=== PATIENT | female | born 1940 | race Caucasian/White ===

== ENCOUNTER 2017-03-15 08:01 | Day surgery (SDC) | payer BC ==
[2017-03-15] MEDS ORDERED: PROPOFOL 10 MG/ML VIAL IV ONE (13:32)
[2017-03-15] MEDS ORDERED: LIDOCAINE 2% MDV (20MG/ML) 20ML VIAL IV ONE (13:32)
[2017-03-15] MEDS ORDERED: FENTANYL PF 100MCG/2ML VIAL IV ONE (13:32)
--- NOTE | 2017-03-19 15:40 | Operative Note ---
DATE OF SURGERY: 03/15/2017 REQUESTING PHYSICIAN: CabralesURGEON: Janine Barreto MD POSTOPERATIVE DIAGNOSES: 1. Diffuse gastritis. 2. Postsurgical changes consistent with antrectomy. 3. Left-sided colonic diverticulosis. OPERATION: 1. ESOPHAGOGASTRODUODENOSCOPY. 2. COLONOSCOPY and exam. REASON FOR PROCEDURE: This is a 77-year-old female with a history of abdominal pain and colon polyps presenting for both esophagogastroduodenoscopy and colonoscopy. SEDATION: Sedation as per anesthesia. Pulse oximetry was monitored throughout the duration of the procedure to maintain O2 saturation of 90% or greater. Supplemental oxygen was administered via nasal cannula. Cardiac and vital signs were monitored throughout the duration of the procedure and they were stable. PROCEDURE: Description of the procedures of esophagogastroduodenoscopy and colonoscopy, risks and alternatives to the procedures including the risk of bleeding and perforation among others were explained to the patient who voiced understanding and decided to proceed. Physical examination was performed and the patient was found stable for sedation. The patient was then placed in the left lateral position and sedation was initiated. A plastic bite block was inserted into the oral cavity. A lubricated Olympus GIF-180 gastroscope was then placed through the oral cavity and advanced through the proximal esophagus without difficulty. The esophageal mucosa was carefully examined upon insertion of the gastroscope. The proximal, mid and distal esophageal mucosa appeared normal. The gastroscope was then advanced to the stomach and there were postsurgical changes noted consistent with antrectomy, but no ulcers, lesions, or any mass lesions noted. That gastric pouch appeared diffusely erythematous. The efferent limb appeared normal. The gastroscope was then advanced to the stomach and retroflexion was performed. There were no other lesions noted. The gastroscope was then straightened and withdrawn, very carefully re-examining the gastric and esophageal mucosa and no other lesions were noted. Multiple gastric biopsies were obtained. The patient remained with stable vital signs and was repositioned for colonoscopy. Digital rectal exam was performed and showed small external hemorrhoids with no palpable rectal masses. A lubricated Olympus PCF-180AL colonoscope was then inserted into the rectum under direct visualization and was advanced to the cecum without difficulty. The ileocecal valve and appendiceal orifice were identified and photographed. The colonic mucosa was carefully examined upon insertion of the colonoscope. There were scattered diverticula noted in the sigmoid and descending colon. No other lesions were noted. The colonoscope was then withdrawn while carefully examining the colonic mucosal surfaces. No other lesions were noted. In the rectum on retroflexion, grade 1 internal hemorrhoids were noted. The colonoscope was then withdrawn and the procedure was terminated. The patient tolerated the procedure well without any complications. The patient remained with stable vital signs and was sent to the recovery room. PLAN AND RECOMMENDATIONS: 1. She should be on a high-fiber diet. 2. She is to have repeat colonoscopy only as needed. Thank you for allowing me to participate in the care of this patient. Janine Barreto MD CC: DO GEOFF Reeves
== END 2017-03-15 10:10 | disposition home or self-care (01) ==
LOC: HOP 08:01
PROVIDERS: ATTEND Internal Medicine Gastroenterology
DX: Z86.010 Personal history of colon polyps (principal); K29.50 Unspecified chronic gastritis without bleeding; K57.30 Diverticulosis of large intestine without perforation or abscess without bleeding; I10 Essential (primary) hypertension; E03.9 Hypothyroidism, unspecified; E78.00 Pure hypercholesterolemia, unspecified
CPT/HCPCS: 00810; 43239; G0121

== ENCOUNTER 2017-11-29 17:27 | Observation (INO) | payer BC ==
[2017-11-29] MEDS ORDERED: METHYLPREDNISOLONE PF 125MG/VIAL IVP ONE (18:00)
[2017-11-29] MEDS ORDERED: ALBUTEROL SULFATE (0.083%) 2.5 MG/3 ML NEB INH ONE (18:00)
[2017-11-29] MEDS ORDERED: IPRATROPIUM/ALBUTEROL (0.5MG/3MG) NEB INH ONE (18:04)
[2017-11-29 18:17] LABS: BASO % 0.5 % (0-6); EOS % 0.9 % (0-6); GRAN % 77.6 % (47-80); HEMATOCRIT 43.6 % (35.0-47.0); HEMOGLOBIN 14.5 gm/dl (11.6-16.0); LYMPH % 11.8 % (16-45); MEAN CELL VOLUME 90.6 fl (81-97); MEAN CORPUSCULAR HEMOGLOBIN 30.1 pg (27-33); MEAN CORPUSCULAR HGB CONC 33.3 g/dl (32-36); MEAN PLATELET VOLUME 9.6 fl (7.4-10.4); MONO % 9.2 % (0-9); PLATELET COUNT 214 K/uL (130-400); RED BLOOD COUNT 4.81 M/uL (3.80-5.40); RED CELL DISTRIBUTION WIDTH 14.4 % (11.5-14.5); WHITE BLOOD COUNT W/O DIFF 8.2 K/uL (4.2-12.2)
--- NOTE | 2017-11-29 18:18 | Emergency Department Record ---
History of Present Illness - General Chief Complaint: Difficulty Breathing Stated Complaint: CHEST PAIN Time Seen by Provider: 11/29/17 17:49 Source: Patient, EMS Mode of Arrival: EMS Limitations: No limitations - History of Present Illness Initial Comments: pt has a cough that started a month ago that is productive green. she has become increasingly sob MD Complaint: Cough, Shortness of breath Onset/Timin -: Days(s) Consistency: Getting worse Improves With: Nothing Worsens With: Exertion Known History Of: COPD Context: Recent URI Associated Symptoms: Cough Treatments Prior to Arrival: None - Related Data Home Oxygen Therapy: No Allergies Allergy/AdvReac Type Severity Reaction Status Date / Time codeine Allergy Unknown NAUSEA AND Verified 11/29/17 17:51 VOMITING Travel Screening - Travel/Exposure Within Last 30 Days Have you traveled within the last 30 days?: No - Travel/Exposure Within Last Year Have you traveled outside the [place] in the last year?: No - Additonal Travel Details Have you been exposed to anyone with a communicable illness?: No Review of Systems Reviewed: No additional complaints except as noted below Constitutional: Reports: As per HPI. Denies: Chills, Fever, Malaise, Night sweats, Weakness, Weight change Eyes: Reports: As per HPI. Denies: Eye discharge, Eye pain, Photophobia, Vision change ENT: Reports: As per HPI. Denies: Congestion, Dental pain, Ear pain, Epistaxis , Hearing loss, Throat pain Respiratory: Reports: As per HPI, Cough, Dyspnea, Wheezes. Denies: Hemoptysis, Stridor Cardiovascular: Reports: As per HPI. Denies: Arrhythmia, Chest pain, Dyspnea on exertion, Edema, Murmurs, Orthopnea, Palpitations, Paroxysmal nocturnal dyspnea, Rheumatic Fever, Syncope Endocrine: Reports: As per HPI. Denies: Fatigue, Heat or cold intolerance, Polydipsia, Polyuria Gastrointestinal: Reports: As per HPI. Denies: Abdominal pain, Constipation, Diarrhea, Hematemesis, Hematochezia, Melena, Nausea, Vomiting Genitourinary: Reports: As per HPI. Denies: Abnormal menses, Discharge, Dyspareunia, Dysuria, Frequency, Hematuria, Incontinence, Retention, Urgency Musculoskeletal: Reports: As per HPI. Denies: Arthralgia, Back pain, Gout, Joint swelling, Myalgia, Neck pain Skin: Reports: As per HPI. Denies: Bruising, Change in color, Change in hair/ nails, Lesions, Pruritus, Rash Neurological: Reports: As per HPI. Denies: Abnormal gait, Confusion, Headache, Numbness, Paresthesias, Seizure, Tingling, Tremors, Vertigo, Weakness Psychiatric: Reports: As per HPI. Denies: Anxiety, Auditory hallucinations, Depression, Homicidal thoughts, Suicidal thoughts, Visual hallucinations Hematological/Lymphatic: Reports: As per HPI. Denies: Anemia, Blood Clots, Easy bleeding, Easy bruising, Swollen glands Past Medical History - SOCIAL HISTORY Smoking Status: Never smoker Alcohol Use: None Drug Use: None - RESPIRATORY Hx Respiratory Disorders: Yes Hx Asthma: Yes (bronchial) Hx Bronchitis: Yes Hx COPD: Yes - CARDIOVASCULAR Hx Cardio Disorders: Yes Hx Edema: Yes Hx Hypertension: Yes Hx Coronary Artery Disease: Yes Comment:: pt has carotid artery stenosis-no problems, mows lawn, chores w/o diff - NEURO Hx Neuro Disorders: No - GI Hx GI Disorders: Yes Hx Reflux: Yes Hx Hiatal Hernia: Yes Hx of Polyps: Yes - Hx Genitourinary Disorders: Yes Hx UTI: Yes - ENDOCRINE Hx Endocrine Disorders: Yes Hx Diabetes: No Hx Thyroid Disease: Yes - MUSCULOSKELETAL Hx Musculoskeletal Disorders: Yes Hx Arthritis: Yes - PSYCH Hx Psych Problems: Yes Hx Anxiety: Yes Hx Depression: Yes 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 - HEMATOLOGY/ONCOLOGY Hx Hematology/Oncology Disorders: Yes Hx Cancer: Yes (Pancreatic (?)) Hx Chemotherapy: No Hx Radiation Therapy: No Comment:: Pt states, "spot on pancreas, 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" Family Medical History Any Significant Family History?: Yes Hx Cancer: Father, Mother *Cancer Comment: Father-colon ca, Mom-ovarian, sister-breast Physical Exam - General General Appearance: Alert, Oriented x3, Cooperative, Mild distress - Head Head exam: Normal inspection - Eye Eye exam: Normal appearance, PERRL, EOMI Pupils: Normal accommodation - ENT ENT exam: Normal exam, Mucous membranes moist, Normal external ear exam, Normal orophraynx Ear exam: Normal external inspection. negative: External canal tenderness Nasal Exam: Normal inspection. negative: Discharge, Sinus tenderness Mouth exam: Normal external inspection, Tongue normal Teeth exam: Normal inspection. negative: Dental caries Throat exam: Normal inspection. negative: Tonsillar erythema, Tonsillar exudate - Neck Neck exam: Normal inspection, Full ROM. negative: Tenderness - Respiratory Respiratory exam: Rales, Respiratory distress, Wheezes - Cardiovascular Cardiovascular Exam: Regular rate, Normal rhythm, Normal heart sounds - GI/Abdominal GI/Abdominal exam: Soft, Normal bowel sounds. negative: Tenderness - Rectal Rectal exam: Deferred - exam: Deferred - Extremities Extremities exam: Normal inspection, Full ROM, Normal capillary refill. negative: Tenderness - Back Back exam: Reports: Normal inspection, Full ROM. Denies: Muscle spasm, Rash noted, Tenderness - Neurological Neurological exam: Alert, CN II-XII intact, Normal gait, Oriented X3 - Psychiatric Psychiatric exam: Normal affect, Normal mood - Skin Skin exam: Dry, Intact, Normal color, Warm Course Vital Signs 11/29/17 17:39 Temperature 98.6 F Pulse Rate 101 H Respiratory 20 Rate Blood Pressure 151/95 Pulse Ox 96 Medical Decision Making - Lab Data Result diagrams: 11/29/17 18:10 11/29/17 18:10 Disposition Disposition: Admit Clinical Impression: Bronchitis Pneumonia Qualifiers: Pneumonia type: due to unspecified organism Laterality: bilateral Lung location : lower lobe of lung Qualified Code(s): J18.9 - Pneumonia, unspecified organism Disposition: Still a Patient at [facility] Decision to Admit: Admit from ER Decision to Admit Date: 11/29/17 Decision to Admit Time: 19:40 Forms: Patient Portal Access Quality - Quality Measures Quality Measures: N/A - Blood Pressure Screening Does Patient Have Any of the Following: Active Dx of HTN Blood Pressure Classification: Hypertensive Reading Systolic Measurement: 151 Diastolic Measurement: 95 Screening for High Blood Pressure: Patient Exclusion, Hx of HTN [[id number]]
[2017-11-29 18:27] LABS: INFLUENZA A NEGATIVE (NEGATIVE); INFLUENZA B NEGATIVE (NEGATIVE)
[2017-11-29 18:35] LABS: BLOOD UREA NITROGEN 14 mg/dL (8-23); CREATININE 0.6 mg/dL (0.5-0.9); EST GLOMERULAR FILTRATION RATE > 60 mL/min; GLUCOSE,RANDOM 129 mg/dL (74-109)
[2017-11-29] MEDS ORDERED: CEFTRIAXONE SODIUM 1 GM in 0.9 % SODIUM CHLORIDE 100ML 100 ML IVPB ONE (19:35)
[2017-11-29] MEDS ORDERED: ACETAMINOPHEN 500 MG TABLET PO PRN (20:52)
[2017-11-29] MEDS ORDERED: CEFTRIAXONE SODIUM 1 GM in 0.9 % SODIUM CHLORIDE 100ML 100 ML IVPB SCH (20:52)
[2017-11-29] MEDS ORDERED: IPRATROPIUM/ALBUTEROL (0.5MG/3MG) NEB INH PRN (20:52)
[2017-11-29] MEDS ORDERED: AZITHROMYCIN 500 MG in 0.9 % SODIUM CHLORIDE 250ML 250 ML IVPB SCH (20:52)
--- NOTE | 2017-11-29 21:10 | History & Physical ---
History of Present Illness - Date of Service Date of Service for History & Physical: 11/30/17 - History of Present Illness Admitting Diagnosis: pneumonia, bronchitis History of Present Illness: Pt. is a 77 year-old female who presented to the ED on 11/29/17 with complaint of cough and productive green sputum that she has been experiencing for one month with worsening shortness of breath. Her history includes: COPD, asthma, hypertension, coronary artery disease, gerd, hiatal hernia, UTIs, hypothyroidism, arthritis, anxiety and depression, whipple procedure, and pancreatic cancer (removed during whipple). In the ED, her vital signs were: BP 151/95, HR 101, RR 20, 96% on 2L nc, and T 98.6F. Her CMP was unremarkable, CBC with differential unremarkable. Chest xray demonstrated stable chronic interstitial changes in bilateral lung reid, area of confluence within right middle lobe. Azithromycin 500mg IV and rocephin 1gm IV administered. Solu-medrol 125mg IVP administered. Based on history of COPD and pneumonia, she was admitted for inpatient observation for IV antibiotics and respiratory treatments. 11/30/17 1100: Pt. is resting comfortably in bed. She reports improved ease of breathing. She states that she is still coughing up thick brown sputum, but frequency is decreasing. Plan to change IV antibiotics to orals, start cefdinir 300mg bid and azithromycin 250mg daily, total of 5 days antibiotic therapy. Mucinex 1200mg bid ordered to help thin secretions. Plan to continue duo nebs and albuterol nebs. Plan for pt. to stay overnight tonight based on comorbidity of COPD with pneumonia and need for respiratory treatments and monitoring of labs and vital signs. Pt. lives independently at her home. Travel Screening - Travel/Exposure Within Last 30 Days Have you traveled within the last 30 days?: No - Travel/Exposure Within Last Year Have you traveled outside the [place] in the last year?: No - Additonal Travel Details Have you been exposed to anyone with a communicable illness?: No Review of Systems Constitutional: Reports: As per HPI. Denies: Chills, Fever, Malaise, Night sweats, Weakness, Weight change Eyes: Reports: As per HPI. Denies: Eye discharge, Eye pain, Photophobia, Vision change ENT: Reports: As per HPI. Denies: Congestion, Dental pain, Ear pain, Epistaxis , Hearing loss, Throat pain Respiratory: Reports: As per HPI, Cough, Dyspnea, Wheezes. Denies: Hemoptysis, Stridor Cardiovascular: Reports: As per HPI. Denies: Arrhythmia, Chest pain, Dyspnea on exertion, Edema, Murmurs, Orthopnea, Palpitations, Paroxysmal nocturnal dyspnea, Rheumatic Fever, Syncope Endocrine: Reports: As per HPI. Denies: Fatigue, Heat or cold intolerance, Polydipsia, Polyuria Gastrointestinal: Reports: As per HPI. Denies: Abdominal pain, Constipation, Diarrhea, Hematemesis, Hematochezia, Melena, Nausea, Vomiting Genitourinary: Reports: As per HPI. Denies: Abnormal menses, Discharge, Dyspareunia, Dysuria, Frequency, Hematuria, Incontinence, Retention, Urgency Musculoskeletal: Reports: As per HPI. Denies: Arthralgia, Back pain, Gout, Joint swelling, Myalgia, Neck pain Skin: Reports: As per HPI. Denies: Bruising, Change in color, Change in hair/ nails, Lesions, Pruritus, Rash Neurological: Reports: As per HPI. Denies: Abnormal gait, Confusion, Headache, Numbness, Paresthesias, Seizure, Tingling, Tremors, Vertigo, Weakness Psychiatric: Reports: As per HPI. Denies: Anxiety, Auditory hallucinations, Depression, Homicidal thoughts, Suicidal thoughts, Visual hallucinations Hematological/Lymphatic: Reports: As per HPI. Denies: Anemia, Blood Clots, Easy bleeding, Easy bruising, Swollen glands Past Medical History - SOCIAL HISTORY Smoking Status: Never smoker Alcohol Use: None Drug Use: None - RESPIRATORY Hx Respiratory Disorders: Yes Hx Asthma: Yes (bronchial) Hx Bronchitis: Yes Hx COPD: Yes - CARDIOVASCULAR Hx Cardio Disorders: Yes Hx Edema: Yes Hx Hypertension: Yes Hx Coronary Artery Disease: Yes Comment:: pt has carotid artery stenosis-no problems, mows lawn, chores w/o diff - NEURO Hx Neuro Disorders: No - GI Hx GI Disorders: Yes Hx Reflux: Yes Hx Hiatal Hernia: Yes Hx of Polyps: Yes - Hx Genitourinary Disorders: Yes Hx UTI: Yes - ENDOCRINE Hx Endocrine Disorders: Yes Hx Diabetes: No Hx Thyroid Disease: Yes - MUSCULOSKELETAL Hx Musculoskeletal Disorders: Yes Hx Arthritis: Yes - PSYCH Hx Psych Problems: Yes Hx Anxiety: Yes Hx Depression: Yes 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 - HEMATOLOGY/ONCOLOGY Hx Hematology/Oncology Disorders: Yes Hx Cancer: Yes (Pancreatic (?)) Hx Chemotherapy: No Hx Radiation Therapy: No Comment:: Pt states, "spot on pancreas, 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" Family Medical History Any Significant Family History?: Yes Hx Cancer: Father, Mother *Cancer Comment: Father-colon ca, Mom-ovarian, sister-breast H&P Meds/Allergies - Allergies Allergies: Allergies Allergy/AdvReac Type Severity Reaction Status Date / Time codeine Allergy Unknown NAUSEA AND Verified 11/29/17 17:51 VOMITING - Home Medications Home Medications Medication Instructions Recorded Confirmed Last Taken Aspirin [Aspirin EC] 81 mg PO DAILY 11/30/17 11/30/17 Unknown Diltiazem HCl [Cardizem] 30 mg PO BID 11/30/17 11/30/17 11/28/17 22:00 30 MG Levothyroxine Sodium [Synthroid] 125 mcg PO DAILY 11/30/17 11/30/17 Unknown Loratadine [Claritin] 10 mg PO DAILY 11/30/17 11/30/17 Unknown Lovastatin 40 mg PO QHS 11/30/17 11/30/17 Unknown Mirtazapine [Remeron] 15 mg PO QHS 11/30/17 11/30/17 11/28/17 22:00 Nadolol 20 mg PO BID 11/30/17 11/30/17 11/28/17 22:00 20 MG Pantoprazole Sodium 40 mg PO BIDAC 11/30/17 11/30/17 Unknown - Active Medications Active Medications: Current Medications Acetaminophen (Tylenol 500mg Tab) 1,000 mg PO Q6H PRN PRN Reason: PAIN/TEMP Albuterol Sulfate () 2.5 mg INH RESP.Q4H PRN PRN Reason: DIFFICULTY IN BREATHING Albuterol/Ipratropium (Duoneb) 3 ml INH RESP.Q6H PRN PRN Reason: Wheezing Diltiazem HCl (Cardizem) 30 mg PO DAILY [facility] Guaifenesin (Mucinex) 1,200 mg PO BID [facility] Azithromycin 500 mg/ Sodium (Chloride) 250 mls @ 250 mls/hr IVPB Q24H [facility] Stop: 12/04/17 20:53 Ceftriaxone Sodium 1 gm/ (Sodium Chloride) 100 mls @ 100 mls/hr IVPB Q24H [facility] Stop: 12/04/17 20:53 Last Admin: 11/29/17 20:57 Dose: Not Given Levothyroxine Sodium (Synthroid) 112 mcg PO DAILYTHY [facility] Methylprednisolone Sodium Succinate (Solu-Medrol) 125 mg IVP DAILY [facility] Non-Formulary Medication (Nadolol [Corgard]) 40 mg PO DAILY [facility] Physical Exam - Vital Signs Vital Signs: Vital Signs - Last 24 Hrs Pulse Resp Pulse Ox 11/29/17 20:36 96 H 20 91 L - General General Appearance: Alert, Oriented x3, Cooperative, No acute distress Limitations: No limitations - Head Head exam: Normal inspection - Eye Eye exam: Normal appearance, PERRL, EOMI Pupils: Normal accommodation - ENT ENT exam: Normal exam, Mucous membranes moist, Normal external ear exam, Normal orophraynx Ear exam: Normal external inspection. negative: External canal tenderness Nasal Exam: Normal inspection. negative: Discharge, Sinus tenderness Mouth exam: Normal external inspection, Tongue normal Teeth exam: Normal inspection. negative: Dental caries Throat exam: Normal inspection. negative: Tonsillar erythema, Tonsillar exudate - Neck Neck exam: Normal inspection, Full ROM. negative: Tenderness - Respiratory Respiratory exam: Rales, Rhonchi, Wheezes (slight expiratory) - Cardiovascular Cardiovascular Exam: Regular rate, Normal rhythm, Normal heart sounds - GI/Abdominal GI/Abdominal exam: Soft, Normal bowel sounds. negative: Tenderness - Rectal Rectal exam: Deferred - exam: Deferred - Extremities Extremities exam: Normal inspection, Full ROM, Normal capillary refill. negative: Tenderness - Back Back exam: Reports: Normal inspection, Full ROM. Denies: Muscle spasm, Rash noted, Tenderness - Neurological Neurological exam: Alert, CN II-XII intact, Normal gait, Oriented X3 - Psychiatric Psychiatric exam: Normal affect, Normal mood - Skin Skin exam: Dry, Intact, Normal color, Warm Results - Labs Result Diagrams: 11/30/17 06:45 11/30/17 06:45 - Imaging and Cardiology Chest x-ray Status: Report reviewed (Right middle lobe consolidation) VTE H&P Assessment - Risk for VTE Risk for VTE: Yes Risk Level: Low Risk Assessment Date: 11/30/17 Risk Assessment Time: 11:00 VTE Orders Placed or Will Be Placed: Yes Plan - Detailed Diagnosis and Plan (1) Pneumonia Current Visit: Yes Status: Acute Qualifiers: Pneumonia type: due to unspecified organism Laterality: right Lung location: middle lobe of lung Qualified Code(s): J18.1 - Lobar pneumonia, unspecified organism Base Code: J18.9 - PNEUMONIA, UNSPECIFIED ORGANISM Comment: 11/30/17 1100: Pt presented to ED on 11/29 because she was experiencing productive cough with brown sputum and worsening shortness of breath over the past month. Chest xray showed consolidation in right middle lobe. CBC and CMP unremarkable. Azithromycin 500mg IV and rocephin 1gm q24 hours started, changed to PO abx today: azithromycin 250mg daily and cefdinir 300mg q12h. Will continue with duo nebs q4h prn. Will continue to monitor vital signs and labs. Oxygen saturation 93% on room air. (2) At risk for deep venous thrombosis Current Visit: Yes Status: Acute Base Code: Z91.89 - OTH PERSONAL RISK FACTORS, NOT ELSEWHERE CLASSIFIED Comment: 11/30/17 1125: Pt. at increased risk for DVT secondary to decreased mobility (pneumonia and copd bronchitis). Will consider starting lovenox 40mg sc daily if pt. stays another overnight. (3) Full code status Current Visit: Yes Status: Acute Base Code: Z78.9 - OTHER SPECIFIED HEALTH STATUS Comment: 11/30/17 1125: Pt. is full code status.
[2017-11-29] MEDS: GUAIFENESIN 1,200 MG TABLET PO SCH (22:00)
[2017-11-30] MEDS: ALBUTEROL SULFATE (0.083%) 2.5 MG/3 ML NEB INH PRN ×2 (00:53→10:08)
[2017-11-30] MEDS: MONTELUKAST SODIUM 10MG TABLET PO SCH ×2 (01:09→21:39)
[2017-11-30] MEDS: DILTIAZEM HCL 30 MG TABLET PO SCH ×3 (01:09→21:39)
[2017-11-30] MEDS: MIRTAZAPINE 15 MG TABLET PO SCH ×2 (01:09→21:39)
[2017-11-30] MEDS: PANTOPRAZOLE SODIUM 40 MG TABLET PO SCH ×2 (06:49→16:51)
[2017-11-30] MEDS: LEVOTHYROXINE SODIUM 125 MCG TABLET PO SCH (06:49)
[2017-11-30 06:53] LABS: HEMATOCRIT 39.2 % (35.0-47.0); MEAN CELL VOLUME 90.1 fl (81-97); MEAN CORPUSCULAR HEMOGLOBIN 29.9 pg (27-33); MEAN CORPUSCULAR HGB CONC 33.2 g/dl (32-36); PLATELET COUNT 146 K/uL (130-400); RED BLOOD COUNT 4.35 M/uL (3.80-5.40); RED CELL DISTRIBUTION WIDTH 14.2 % (11.5-14.5); WHITE BLOOD COUNT W/O DIFF 5.3 K/uL (4.2-12.2)
[2017-11-30] MEDS ORDERED: LEVOTHYROXINE SOD 112 MCG TAB PO SCH (07:00)
[2017-11-30 07:12] LABS: ALB/GLOB RATIO 0.9 (1.1-1.8); ALBUMIN 3.6 g/dL (4.0-5.0); ALKALINE PHOSPHATASE 85 U/L (35-104); ALT/SGPT 10 U/L (<33); AST/SGOT 21 U/L (10.0-35.0); BLOOD UREA NITROGEN 17 mg/dL (8-23); CREATININE 0.5 mg/dL (0.5-0.9); EST GLOMERULAR FILTRATION RATE > 60 mL/min; GLUCOSE,RANDOM 132 mg/dL (74-109); TOTAL PROTEIN 7.8 g/dL (6.6-8.7)
[2017-11-30] MEDS ORDERED: ACETAMINOPHEN 500 MG TABLET PO PRN (07:12)
[2017-11-30] MEDS: GUAIFENESIN 1,200 MG TABLET PO SCH ×2 (09:25→21:39)
[2017-11-30] MEDS: ASPIRIN 81 MG TABEC PO SCH (09:25)
[2017-11-30] MEDS: LORATADINE 10 MG TABLET PO SCH (09:25)
[2017-11-30] MEDS ORDERED: PATIENT OWN MED: PO SCH (10:00)
[2017-11-30] MEDS ORDERED: NADOLOL 40 MG PO SCH (10:00)
[2017-11-30] MEDS ORDERED: DILTIAZEM HCL 30 MG TABLET PO SCH (10:00)
[2017-11-30] MEDS ORDERED: METHYLPREDNISOLONE PF 125MG/VIAL IVP SCH (10:00)
--- NOTE | 2017-11-30 10:30 | RADIOLOGY REPORT ---
DATE: 11/29/2017. EXAM: TWO VIEWS OF THE CHEST. HISTORY: The patient has a cough. TECHNIQUE: Two views of the chest are provided. COMPARISON: Comparison study dated 01/02/2017. FINDINGS: The cardiomediastinal silhouette is within normal limits for size and contour. Prominent andrew and pulmonary vasculature appear similar to the prior examination. Tortuosity of the thoracic aorta is again noted. Chronic reticulonodular densities are again identified within both lung hager. Peribronchial thickening is again identified within both lower lobes. There is an area of confluence within the region of the right middle lobe. However, these findings appear unchanged with respect to the prior two chest x-rays. No pneumothorax is noted. IMPRESSION: STABLE CHRONIC INTERSTITIAL CHANGES ARE IDENTIFIED IN THE BILATERAL LUNG HAGER DISCUSSED ABOVE. NO NEW FOCAL CONSOLIDATION, PLEURAL EFFUSION, OR PNEUMOTHORAX IS NOTED. JOB NUMBER: [id number] MTDD
[2017-11-30] MEDS: CEFDINIR 300 MG CAPSULE PO SCH ×2 (13:05→21:39)
[2017-11-30] MEDS: NADOLOL 20 MG PO SCH ×2 (13:05→21:38)
[2017-11-30] MEDS: AZITHROMYCIN 250 MG TABLET PO SCH (21:42)
[2017-12-01 06:34] LABS: BASO % 0.1 % (0-6); HEMATOCRIT 39.3 % (35.0-47.0); HEMOGLOBIN 13.4 gm/dl (11.6-16.0); LYMPH % 5.5 % (16-45); MEAN CELL VOLUME 89.7 fl (81-97); MEAN CORPUSCULAR HEMOGLOBIN 30.6 pg (27-33); MEAN CORPUSCULAR HGB CONC 34.1 g/dl (32-36); MEAN PLATELET VOLUME 9.4 fl (7.4-10.4); MONO % 5.3 % (0-9); PLATELET COUNT 225 K/uL (130-400); RED BLOOD COUNT 4.38 M/uL (3.80-5.40); RED CELL DISTRIBUTION WIDTH 14.1 % (11.5-14.5); WHITE BLOOD COUNT W/O DIFF 14.3 K/uL (4.2-12.2)
[2017-12-01 06:56] LABS: ALB/GLOB RATIO 0.9 (1.1-1.8); ALBUMIN 3.6 g/dL (4.0-5.0); ALKALINE PHOSPHATASE 83 U/L (35-104); ALT/SGPT 12 U/L (<33); AST/SGOT 26 U/L (10.0-35.0); BLOOD UREA NITROGEN 17 mg/dL (8-23); CREATININE 0.5 mg/dL (0.5-0.9); EST GLOMERULAR FILTRATION RATE > 60 mL/min; GLUCOSE,RANDOM 157 mg/dL (74-109); TOTAL PROTEIN 7.8 g/dL (6.6-8.7)
[2017-12-01] MEDS: PANTOPRAZOLE SODIUM 40 MG TABLET PO SCH (06:57)
[2017-12-01] MEDS: LEVOTHYROXINE SODIUM 125 MCG TABLET PO SCH (06:57)
[2017-12-01] MEDS ORDERED: PREDNISONE 20 MG TAB PO SCH (08:00)
[2017-12-01] MEDS: CEFDINIR 300 MG CAPSULE PO SCH (09:17)
[2017-12-01] MEDS: DILTIAZEM HCL 30 MG TABLET PO SCH (09:17)
[2017-12-01] MEDS: NADOLOL 20 MG PO SCH (09:18)
[2017-12-01] MEDS: GUAIFENESIN 1,200 MG TABLET PO SCH (09:18)
[2017-12-01] MEDS: ASPIRIN 81 MG TABEC PO SCH (09:18)
[2017-12-01] MEDS: LORATADINE 10 MG TABLET PO SCH (09:18)
[2017-12-01] MEDS: AZITHROMYCIN 250 MG TABLET PO SCH (09:19)
--- NOTE | 2017-12-01 10:32 | Discharge Summary ---
Providers Discharge Summary Date: 12/01/17 Date of admission: 11/29/17 20:34 Expected Date of Discharge: 12/01/17 Attending physician: ANTOINETTE DAVIS Physical Exam - Vital Signs Vital Signs: Vital Signs - Last 24 Hrs Temp Pulse Pulse Resp BP Pulse Ox 12/01/17 10:00 74 16 149/84 94 L 12/01/17 06:00 98.1 F 90 19 164/93 90 L 11/30/17 22:00 97.7 F 74 16 124/78 94 L 11/30/17 21:57 70 93 L 11/30/17 18:00 96.6 F L 81 18 142/86 93 L 11/30/17 14:00 96.8 F L 74 18 144/86 93 L - General General Appearance: Alert, Oriented x3, Cooperative, No acute distress Limitations: No limitations - Head Head exam: Normal inspection - Eye Eye exam: Normal appearance, PERRL, EOMI Pupils: Normal accommodation - ENT ENT exam: Normal exam, Mucous membranes moist, Normal external ear exam, Normal orophraynx Ear exam: Normal external inspection. negative: External canal tenderness Nasal Exam: Normal inspection. negative: Discharge, Sinus tenderness Mouth exam: Normal external inspection, Tongue normal Teeth exam: Normal inspection. negative: Dental caries Throat exam: Normal inspection. negative: Tonsillar erythema, Tonsillar exudate - Neck Neck exam: Normal inspection, Full ROM. negative: Tenderness - Respiratory Respiratory exam: Decreased breath sounds. negative: Respiratory distress - Cardiovascular Cardiovascular Exam: Regular rate, Normal rhythm, Normal heart sounds - GI/Abdominal GI/Abdominal exam: Soft, Normal bowel sounds. negative: Tenderness - Rectal Rectal exam: Deferred - exam: Deferred - Extremities Extremities exam: Normal inspection, Full ROM, Normal capillary refill. negative: Tenderness - Back Back exam: Reports: Normal inspection, Full ROM. Denies: Muscle spasm, Rash noted, Tenderness - Neurological Neurological exam: Alert, CN II-XII intact, Normal gait, Oriented X3 - Psychiatric Psychiatric exam: Normal affect, Normal mood - Skin Skin exam: Dry, Intact, Normal color, Warm Hospitalization - Hospitalization Admission Diagnosis: pneumonia, bronchitis - Problem List/Discharge Diagnosis (1) Pneumonia Status: Acute Discharge Diagnosis: Pneumonia type: due to unspecified organism Laterality: right Lung location: middle lobe of lung Qualified Code(s): J18.1 - Lobar pneumonia, unspecified organism Base Code: J18.9 - PNEUMONIA, UNSPECIFIED ORGANISM Comment: 12/01/17 1000: Pt presented to ED on 11/29 because she was experiencing productive cough with brown sputum and worsening shortness of breath over the past month. Chest xray showed consolidation in right middle lobe. CBC and CMP unremarkable. Pt's respiratory status continues to improve, 94% on room air. Pt. has remained afebrile. WBC this morning did increase to 14.3- likely secondary solumedrol that was given over last 2 days. Plan to discharge home today- will continue cefdinir 300mg bid and azithromycin 250mg daily for total of 5 days therapy. Will continue prednisone 40mg daily for 3 more days. Will order duo neb for pt' s home nebulizer to be used for 2-3 more days at home. (2) At risk for deep venous thrombosis Status: Acute Base Code: Z91.89 - OTH PERSONAL RISK FACTORS, NOT ELSEWHERE CLASSIFIED Comment: 12/01/17 1125: Pt. at increased risk for DVT secondary to decreased mobility (pneumonia and copd bronchitis). Pt. will be discharging home today and resuming normal level of physical activity. (3) Full code status Status: Acute Base Code: Z78.9 - OTHER SPECIFIED HEALTH STATUS Comment: 12/01 1125: Pt. remains full code status. - Hospitalization Course Disposition: Home, Self-Care Hospital Course: Pt. is a 77 year-old female who presented to the ED on 11/29/17 with complaint of cough and productive green sputum that she has been experiencing for one month with worsening shortness of breath. Her history includes: COPD, asthma, hypertension, coronary artery disease, gerd, hiatal hernia, UTIs, hypothyroidism, arthritis, anxiety and depression, whipple procedure, and pancreatic cancer (removed during whipple). In the ED, her vital signs were: BP 151/95, HR 101, RR 20, 96% on 2L nc, and T 98.6F. Her CMP was unremarkable, CBC with differential unremarkable. Chest xray demonstrated stable chronic interstitial changes in bilateral lung reid, area of confluence within right middle lobe. Azithromycin 500mg IV and rocephin 1gm IV administered. Solu-medrol 125mg IVP administered. Based on history of COPD and pneumonia, she was admitted for inpatient observation for IV antibiotics and respiratory treatments. 11/30/17 1100: Pt. is resting comfortably in bed. She reports improved ease of breathing. She states that she is still coughing up thick brown sputum, but frequency is decreasing. Plan to change IV antibiotics to orals, start cefdinir 300mg bid and azithromycin 250mg daily, total of 5 days antibiotic therapy. Mucinex 1200mg bid ordered to help thin secretions. Plan to continue duo nebs and albuterol nebs. Plan for pt. to stay overnight tonight based on comorbidity of COPD with pneumonia and need for respiratory treatments and monitoring of labs and vital signs. Pt. lives independently at her home. 12/01/17 1000: Pt's respiratory status continues to improve. She reports improved energy level and strength. She states that her cough has decreased in frequency and she is no longer producing sputum. Pt. has remained afebrile and now 94% on room air. WBC did increase to 14.3 this morning- likely secondary to solumedrol 125mg that was administered on 11/29 and 11/30. Plan to discharge home today. Pt. will be staying with her grandson for a few days. Plan to continue cefdinir 300mg bid and azithromycin 250mg daily for total of 5 days therapy. Will continue prednisone 40mg daily for 3 more days. Will continue duo nebs at home for 2-3 days. Recommend f/u with PCP within 1 week. Abnormal Labs: Abnormal Lab Results 11/30/17 11/30/17 12/01/17 Range/Units 06:45 06:45 06:10 WBC 14.3 H (4.2-12.2) K/uL Neutrophils % 83.0 H 97.0 H (47-80) % Lymphocytes % 5.5 L (16-45) % Lymphocytes 14.0 L 1.0 L (16-45) % Sodium (136-145) mmol/L Random Glucose 132 H (74-109) mg/dL Albumin 3.6 L (4.0-5.0) g/dL Albumin/Globulin Ratio 0.9 L (1.1-1.8) 12/01/17 Range/Units 06:10 WBC (4.2-12.2) K/uL Neutrophils % (47-80) % Lymphocytes % (16-45) % Lymphocytes (16-45) % Sodium 135 L (136-145) mmol/L Random Glucose 157 H (74-109) mg/dL Albumin 3.6 L (4.0-5.0) g/dL Albumin/Globulin Ratio 0.9 L (1.1-1.8) Condition at Discharge: (2) Stable Discharge Diagnosis: Pneumonai- CAP VTE Discharge VTE Reason For No Overlap Therapy: Not Indicated (Pt. will increase activity as tolerated) Discharge Medications - Discharge Medications Prescriptions: Azithromycin [Zithromax] 250 mg PO DAILY 2 Days #2 tab Cefdinir 300 mg PO BID #5 capsule Ipratropium/Albuterol [Duoneb] 3 ml INH RESP.Q6H PRN 7 Days #28 ampul.neb PRN Reason: Wheezing Prednisone [Prednisone 20Mg] 40 mg PO DAILYWM 3 Days #6 tab Home Medications: Ambulatory Orders Beclomethasone Dipropionate [Qvar] 2 puff INH NOW PRN 04/15/15 [Last Taken Unknown] Montelukast Sodium [Singulair] 10 mg PO QHS 04/15/15 [Last Taken 11/28/17 22:00] Tiotropium Blunt [Spiriva] 1 puff INH DAILY 04/15/15 [Last Taken Unknown] Aspirin [Aspirin EC] 81 mg PO DAILY 11/30/17 [Last Taken Unknown] Diltiazem HCl [Cardizem] 30 mg PO BID 11/30/17 [Last Taken 11/28/17 22:00 30 MG] Levothyroxine Sodium [Synthroid] 125 mcg PO DAILY 11/30/17 [Last Taken Unknown] Loratadine [Claritin] 10 mg PO DAILY 11/30/17 [Last Taken Unknown] Lovastatin 40 mg PO QHS 11/30/17 [Last Taken Unknown] Mirtazapine [Remeron] 15 mg PO QHS 11/30/17 [Last Taken 11/28/17 22:00] Nadolol 20 mg PO BID 11/30/17 [Last Taken 11/28/17 22:00 20 MG] Pantoprazole Sodium 40 mg PO BIDAC 11/30/17 [Last Taken Unknown] Azithromycin [Zithromax] 250 mg PO DAILY 2 Days #2 tab 12/01/17 [Last Taken Unknown] Cefdinir 300 mg PO BID #5 capsule 12/01/17 [Last Taken Unknown] Ipratropium/Albuterol [Duoneb] 3 ml INH RESP.Q6H PRN 7 Days #28 ampul.neb [Last Taken Unknown] Prednisone [Prednisone 20Mg] 40 mg PO DAILYWM 3 Days #6 tab 12/01/17 [Last Taken Unknown] Discharge Plan - Discharge Instructions Activity at Discharge: Increase Activity as Tolerated Diet at Discharge: Regular Diet Instructions: COPD (Chronic Obstructive Pulmonary Disease) (DC) Additional Instructions: 2 Activity: TOLERATED 2 Diet: TOLERATED 2 Consults: [] 2 Follow Up: []WITH FAMILY DR IN ONE WEEK 2 Dressing/Wound Care: (Type) (Change) 2 Additional: [] TAKE ANTIBIOTIC PRESCRIBED TAKE PREDNISONE PRESCRIBED USE NEBULIZER ....DO NOT USE SPIRIVA WHILE USING NEBULIZER RETURN TO EMERGENCY DEPARTMENT ID SYMPTOMS WORSEN Quality Measures - Quality Measures Quality Measures: Advance Directives, Documentation of Current Medications in Medical Record, Elder Maltreatment Screen and Follow-Up Plan, Screening for High Blood Pressure and F/U Documented - Current Medications Quality Measure: Measure #130: Documentation of Current Medications Documentation of Current Medications: <Current Medications Documented/Reviewed> [G8427] - Blood Pressure Screening Quality Measure: Screening for High Blood Pressure and Follow-Up Documented Does Patient Have Any of the Following: Active Dx of HTN Blood Pressure Classification: Hypertensive Reading Systolic Measurement: 151 Diastolic Measurement: 95 Screening for High Blood Pressure: Patient Exclusion, Hx of HTN [G9744] - Advance Directives Quality Measure: Measure #47: Care Plan Advance Directives Established: Yes Advance Directives Information Provided To Patient: No Advance Directives on File: No Living Will: No Power of Food Service Cashier: Yes Power of Food Service Cashier Name: BILLY BLACKWELL ([place]) Advance Care Planning: <Care Plan/Decision Maker Documented; Discussed & Documented> [1120S] - Elder Abuse Suspicion Index Screening: Elder Abuse Suspicion Index Screening Rely on people for bathing, dressing, shopping, banking, etc: No Prevented from getting food, clothes, medication, etc: No Made to feel shamed or threatened by someone: No Forced to sign papers or use money against will: No Feel afraid, touched in ways not wanted or hurt physically: No Poor eye contact, withdrawn, malnourished, cuts or bruises: No Screening Result: Negative result EASI Reference Information: Audra ANDERSON, Karen C, Margi Mcmillan, Brennen Patel.Development and validation of a tool to assist physicians identification of elder abuse: The Elder Abuse Suspicion Index (EASI ). Journal of Elder Abuse and Neglect, 2008; 20 (3): 276-300. - Elder Maltreatment Screen Quality Measures: Elder Maltreatment Screen and Follow-Up Plan Elder Maltreatment Screen: <Negative, No Follow-Up Plan Required> [G8734]
== END 2017-12-01 12:50 | disposition home or self-care (01) ==
LOC: ER 17:27 → MEDSURG 20:34
PROVIDERS: ADMIT Internal Medicine; ATTEND Internal Medicine
DX: J18.9 Pneumonia, unspecified organism (principal); J44.9 Chronic obstructive pulmonary disease, unspecified; I10 Essential (primary) hypertension; I25.10 Atherosclerotic heart disease of native coronary artery without angina pectoris; F41.8 Other specified anxiety disorders; Z85.07 Personal history of malignant neoplasm of pancreas; K44.9 Diaphragmatic hernia without obstruction or gangrene; E03.9 Hypothyroidism, unspecified
CPT/HCPCS: 99285 ×2; 96365; 96375; 85025; 80048; 80053 ×2; 87400; 85027 ×2; 71046; 94640 ×3; 94762; G0378 ×3; J7512; J3490 ×3; 99217; 99220; J0456; J2930; J7050; J7613

== ENCOUNTER 2018-10-18 05:51 | Emergency (ER) | payer BC ==
--- NOTE | 2018-10-18 06:15 | Emergency Department Record ---
History of Present Illness - General Chief Complaint: Difficulty Breathing Stated Complaint: FLAVIA Time Seen by Provider: 10/18/18 06:02 Source: Patient, EMS Mode of Arrival: EMS Limitations: No limitations - History of Present Illness Initial Comments: pt was brought in by ems because she is congested and having difficulty breathing in her nose and congested in her throat. she has an occasional productive cough. she denies fevers or chest pain MD Complaint: Cough Onset/Timin -: Hour(s) Consistency: Constant Improves With: Nothing Known History Of: COPD Context: Recent URI Associated Symptoms: Cough Treatments Prior to Arrival: Bronchodilator Treatment Prior to Arrival Comment:: home rescue albuterol inhaler - Related Data Home Oxygen Therapy: No Home Medications Medication Instructions Recorded Confirmed Last Taken Fluticasone/Vilanterol [Breo 1 puff INH DAILY 10/18/18 10/18/18 Unknown Ellipta 100-25 Mcg INH] Ranitidine HCl [Zantac] 150 mg PO DAILY 10/18/18 10/18/18 Unknown Previous Rx's Medication Instructions Recorded Guaifenesin [Mucinex] 600 mg PO BID #10 tab.er.12h 10/18/18 Allergies Allergy/AdvReac Type Severity Reaction Status Date / Time codeine Allergy Unknown NAUSEA AND Verified 11/29/17 17:51 VOMITING Travel Screening - Travel/Exposure Within Last 30 Days Have you traveled within the last 30 days?: No - Travel Symptoms Symptom Screening: None Review of Systems Reviewed: No additional complaints except as noted below Constitutional: Reports: As per HPI. Denies: Chills, Fever, Malaise, Night sweats, Weakness, Weight change Eyes: Reports: As per HPI. Denies: Eye discharge, Eye pain, Photophobia, Vision change ENT: Reports: As per HPI, Congestion. Denies: Dental pain, Ear pain, Epistaxis , Hearing loss, Throat pain Respiratory: Reports: As per HPI, Cough. Denies: Dyspnea, Hemoptysis, Stridor, Wheezes Cardiovascular: Reports: As per HPI. Denies: Arrhythmia, Chest pain, Dyspnea on exertion, Edema, Murmurs, Orthopnea, Palpitations, Paroxysmal nocturnal dyspnea, Rheumatic Fever, Syncope Endocrine: Reports: As per HPI. Denies: Fatigue, Heat or cold intolerance, Polydipsia, Polyuria Gastrointestinal: Reports: As per HPI. Denies: Abdominal pain, Constipation, Diarrhea, Hematemesis, Hematochezia, Melena, Nausea, Vomiting Genitourinary: Reports: As per HPI. Denies: Abnormal menses, Discharge, Dyspareunia, Dysuria, Frequency, Hematuria, Incontinence, Retention, Urgency Musculoskeletal: Reports: As per HPI. Denies: Arthralgia, Back pain, Gout, Joint swelling, Myalgia, Neck pain Skin: Reports: As per HPI. Denies: Bruising, Change in color, Change in hair/ nails, Lesions, Pruritus, Rash Neurological: Reports: As per HPI. Denies: Abnormal gait, Confusion, Headache, Numbness, Paresthesias, Seizure, Tingling, Tremors, Vertigo, Weakness Psychiatric: Reports: As per HPI. Denies: Anxiety, Auditory hallucinations, Depression, Homicidal thoughts, Suicidal thoughts, Visual hallucinations Hematological/Lymphatic: Reports: As per HPI. Denies: Anemia, Blood Clots, Easy bleeding, Easy bruising, Swollen glands Past Medical History - SOCIAL HISTORY Smoking Status: Never smoker Alcohol Use: None Drug Use: None - RESPIRATORY Hx Respiratory Disorders: Yes Hx Asthma: Yes (bronchial) Hx Bronchitis: Yes Hx COPD: Yes - CARDIOVASCULAR Hx Cardio Disorders: Yes Hx Edema: Yes Hx Hypertension: Yes Hx Coronary Artery Disease: Yes Comment:: pt has carotid artery stenosis-no problems, mows lawn, chores w/o diff - NEURO Hx Neuro Disorders: No - GI Hx GI Disorders: Yes Hx Reflux: Yes Hx Hiatal Hernia: Yes Hx of Polyps: Yes - Hx Genitourinary Disorders: Yes Hx UTI: Yes - ENDOCRINE Hx Endocrine Disorders: Yes Hx Diabetes: No Hx Thyroid Disease: Yes - MUSCULOSKELETAL Hx Musculoskeletal Disorders: Yes Hx Arthritis: Yes - PSYCH Hx Psych Problems: Yes Hx Anxiety: Yes Hx Depression: Yes 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 - HEMATOLOGY/ONCOLOGY Hx Hematology/Oncology Disorders: Yes Hx Cancer: Yes (Pancreatic) Hx Chemotherapy: No Hx Radiation Therapy: No Comment:: Pt states, "spot on pancreas, 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" Family Medical History Any Significant Family History?: Yes Hx Cancer: Father, Mother *Cancer Comment: Father-colon ca, Mom-ovarian, sister-breast Physical Exam - General General Appearance: Alert, Oriented x3, Cooperative, Mild distress - Head Head exam: Normal inspection - Eye Eye exam: Normal appearance, PERRL, EOMI Pupils: Normal accommodation - ENT ENT exam: Normal exam, Mucous membranes moist, Normal external ear exam, Normal orophraynx Ear exam: Normal external inspection. negative: External canal tenderness Nasal Exam: Normal inspection, Discharge. negative: Sinus tenderness Mouth exam: Normal external inspection, Tongue normal Teeth exam: Normal inspection. negative: Dental caries Throat exam: Normal inspection. negative: Tonsillar erythema, Tonsillar exudate - Neck Neck exam: Normal inspection, Full ROM. negative: Tenderness - Respiratory Respiratory exam: Normal lung sounds bilaterally. negative: Respiratory distress - Cardiovascular Cardiovascular Exam: Regular rate, Normal rhythm, Normal heart sounds - GI/Abdominal GI/Abdominal exam: Soft, Normal bowel sounds. negative: Tenderness - Rectal Rectal exam: Deferred - exam: Deferred - Extremities Extremities exam: Normal inspection, Full ROM, Normal capillary refill. negative: Tenderness - Back Back exam: Reports: Normal inspection, Full ROM. Denies: Muscle spasm, Rash noted, Tenderness - Neurological Neurological exam: Alert, CN II-XII intact, Normal gait, Oriented X3 - Psychiatric Psychiatric exam: Normal affect, Normal mood - Skin Skin exam: Dry, Intact, Normal color, Warm Course Vital Signs 10/18/18 10/18/18 05:52 06:02 Temperature 98 F Pulse Rate 63 Pulse Rate [ 58 L Pulse Ox Probe] Respiratory 24 26 H Rate Blood Pressure 154/101 Blood Pressure 150/94 [Right Arm] Pulse Ox 95 96 Medical Decision Making - Lab Data Result diagrams: 10/18/18 05:33 10/18/18 05:33 Disposition Disposition: Discharge Clinical Impression: URI (upper respiratory infection) Qualifiers: URI type: unspecified viral URI Qualified Code(s): J06.9 - Acute upper respiratory infection, unspecified Disposition: Home, Self-Care Condition: (1) Good Instructions: Upper Respiratory Infection (ED) Additional Instructions: follow up with family doctor. return sooner if worse. Prescriptions: Guaifenesin [Mucinex] 600 mg PO BID #10 tab.er.12h Forms: Patient Portal Access Quality - Quality Measures Quality Measures: N/A - Blood Pressure Screening Does Patient Have Any of the Following: Active Dx of HTN Blood Pressure Classification: Hypertensive Reading Systolic Measurement: 154 Diastolic Measurement: 101 Screening for High Blood Pressure: Patient Exclusion, Hx of HTN [G9744]
[2018-10-18 06:20] LABS: BASO % 1.4 % (0-6); EOS % 5.4 % (0-6); GRAN % 67.3 % (47-80); HEMOGLOBIN 13.4 gm/dl (11.6-16.0); LYMPH % 18.2 % (16-45); MEAN CORPUSCULAR HEMOGLOBIN 30.4 pg (27-33); MEAN CORPUSCULAR HGB CONC 32.7 g/dl (32-36); MEAN PLATELET VOLUME 9.1 fl (7.4-10.4); MONO % 7.7 % (0-9); PLATELET COUNT 295 K/uL (130-400); RED BLOOD COUNT 4.41 M/uL (3.80-5.40); RED CELL DISTRIBUTION WIDTH 14.1 % (11.5-14.5); WHITE BLOOD COUNT W/O DIFF 6.5 K/uL (4.2-12.2)
[2018-10-18 06:25] LABS: BLOOD UREA NITROGEN 8 mg/dL (8-23); CREATININE 0.8 mg/dL (0.5-0.9); EST GLOMERULAR FILTRATION RATE > 60 mL/min
[2018-10-18 06:28] LABS: GLUCOSE,RANDOM 106 mg/dL (74-109)
[2018-10-18 06:41] LABS: INFLUENZA A NEGATIVE (NEGATIVE); INFLUENZA B NEGATIVE (NEGATIVE)
--- NOTE | 2018-10-20 06:31 | RADIOLOGY REPORT ---
DATE: 10/18/2018 at 6:46 a.m. EXAM: TWO-VIEW CHEST. HISTORY: PRODUCTIVE COUGH AND DIFFICULTY BREATHING FOR THE PAST THREE DAYS. TECHNIQUE: PA and lateral upright views of the chest were obtained. COMPARISON: 11/29/2017. FINDINGS: The heart is normal in size. There is tortuosity of the aorta. The mediastinum and pulmonary vasculature are normal. Chronic interstitial changes are present within both lungs and appear similar to the prior study. The lungs are hyperinflated consistent with chronic obstructive pulmonary disease. There are no visible acute infiltrates or effusions. There is no pneumothorax. Degenerative changes are present within the spine. There are no acute osseous abnormalities. IMPRESSION: 1. STABLE CHRONIC OBSTRUCTIVE PULMONARY DISEASE AND CHRONIC INTERSTITIAL CHANGES. 2. NO ACUTE CHEST PATHOLOGY. JOB NUMBER: [id number] [facility]
== END 2018-10-18 08:15 | disposition home or self-care (01) ==
LOC: ER 05:51
DX: J06.9 Acute upper respiratory infection, unspecified (principal); R06.00 Dyspnea, unspecified; J44.9 Chronic obstructive pulmonary disease, unspecified; I10 Essential (primary) hypertension
CPT/HCPCS: 71046; 80048; 85025; 87400; 99283; 99284

== ENCOUNTER 2019-07-20 09:23 | Emergency (ER) | payer BC ==
--- NOTE | 2019-07-20 09:31 | Emergency Department Record ---
History of Present Illness - General Chief Complaint: Cough Stated Complaint: COUGH/SOB Time Seen by Provider: 07/20/19 09:25 Source: Patient Mode of Arrival: Ambulatory Limitations: No limitations - History of Present Illness Initial Comments: 79 yo female presents with a cough. The onset was four days ago. She reports a history of COPD and asthma. The sputum she is coughing up is green and thick. She denies any chest pain. No nausea, vomiting or diarrhea. No leg edema or calf pain. Her PCP is in [facility]. No rash. No fever. No chest pain. No blood in the sputum. MD Complaint: Cough, Other -: Days(s) (4) Severity: Moderate Quality: Other Consistency: Constant Improves With: Nothing Worsens With: Other (coughing) Associated Symptoms: Cough Treatments Prior to Arrival: None - Related Data Previous Rx's Medication Instructions Recorded Guaifenesin [Mucinex] 600 mg PO BID #10 tab.er.12h 10/18/18 Azithromycin [Zithromax] 250 mg PO DAILY #4 tablet 07/20/19 Prednisone [Prednisone 20Mg] 20 mg PO DAILY #10 tab 07/20/19 Allergies Allergy/AdvReac Type Severity Reaction Status Date / Time codeine Allergy Unknown NAUSEA AND Verified 07/20/19 09:36 VOMITING Review of Systems Constitutional: Reports: Malaise, Weakness. Denies: Chills, Fever Eyes: Denies: Eye discharge ENT: Reports: Congestion. Denies: Throat pain Respiratory: Reports: Cough, Dyspnea, Wheezes Cardiovascular: Denies: Chest pain, Dyspnea on exertion, Edema, Palpitations, Syncope Endocrine: Denies: Fatigue, Polydipsia, Polyuria Gastrointestinal: Denies: Abdominal pain, Diarrhea, Nausea, Vomiting Genitourinary: Denies: Dysuria, Urgency Musculoskeletal: Denies: Arthralgia, Back pain, Myalgia Skin: Denies: Bruising, Change in color, Rash Neurological: Denies: Headache Psychiatric: Denies: Anxiety Hematological/Lymphatic: Denies: Easy bleeding, Easy bruising Past Medical History - SOCIAL HISTORY Smoking Status: Never smoker Drug Use: None - RESPIRATORY Hx Respiratory Disorders: Yes Hx Asthma: Yes (bronchial) Hx Bronchitis: Yes Hx COPD: Yes - CARDIOVASCULAR Hx Cardio Disorders: Yes Hx Edema: Yes Hx Hypertension: Yes Hx Coronary Artery Disease: Yes Comment:: pt has carotid artery stenosis-no problems, mows lawn, chores w/o diff - NEURO Hx Neuro Disorders: No - GI Hx GI Disorders: Yes Hx Reflux: Yes Hx Hiatal Hernia: Yes Hx of Polyps: Yes - Hx Genitourinary Disorders: Yes Hx UTI: Yes - ENDOCRINE Hx Endocrine Disorders: Yes Hx Diabetes: No Hx Thyroid Disease: Yes - MUSCULOSKELETAL Hx Musculoskeletal Disorders: Yes Hx Arthritis: Yes - PSYCH Hx Psych Problems: Yes Hx Anxiety: Yes 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 negative: Conjunctival injection, Scleral icterus - ENT ENT exam: Normal exam, Mucous membranes moist Ear exam: Normal external inspection Nasal Exam: Normal inspection Mouth exam: Normal external inspection - Neck Neck exam: Normal inspection. negative: Lymphadenopathy, Tenderness - Respiratory Respiratory exam: Decreased breath sounds, Prolonged expiratory, Rhonchi, Wheezes. negative: Normal lung sounds bilaterally - Cardiovascular Cardiovascular Exam: Regular rate, Normal rhythm, Normal heart sounds - GI/Abdominal GI/Abdominal exam: Soft. negative: Tenderness - Rectal Rectal exam: Deferred - exam: Deferred - Extremities Extremities exam: Normal inspection. negative: Calf tenderness, Tenderness - Back Back exam: Denies: CVA tenderness (R), CVA tenderness (L), Tenderness - Neurological Neurological exam: Alert, Oriented X3 - Psychiatric Psychiatric exam: Normal affect, Normal mood - Skin Skin exam: Dry, Intact, Normal color, Warm Course - Reevaluation(s) Reevaluation #1: 07/20/19 10:11 The CBC was reviewed No significant abnormality The Influenza are negative 07/20/19 10:52 The CXR was reviewed No acute process, chronic interstitial changes noted. 07/20/19 11:44 The CMP is negative The patient reports she is doing well. No hypoxia, tachycardia, or tachypnea. 07/20/19 11:48 The patient is doing well. I had a long conversation about the results, how she is doing and options of DC vs observation. She is doing well. She is eating and drinking, no hypoxia, she feels safe, she has support and feels comfortable and safe at home. We discussed home care, reasons to immediately return to the ED and the importance of follow up. Medical Decision Making - Lab Data Result diagrams: 07/20/19 09:45 07/20/19 09:45 Disposition Disposition: Discharge Clinical Impression: Bronchitis Disposition: Home, Self-Care Condition: (1) Good Instructions: Acute Bronchitis (ED) Additional Instructions: Call your doctor for the next available follow up appointment Review this ER visit and the tests performed with your family doctor Return to the ER for a recheck if worse, any new concerns or questions Take the antibiotic and steroid prescriptions provided as directed Use your inhaler every 4 hours Prescriptions: Prednisone [Prednisone 20Mg] 20 mg PO DAILY #10 tab Azithromycin [Zithromax] 250 mg PO DAILY #4 tablet Forms: Patient Portal Access Time of Disposition: 11:51 Quality - Quality Measures Quality Measures: N/A - Blood Pressure Screening Does Patient Have Any of the Following: No Blood Pressure Classification: Pre-Hypertensive BP Reading Systolic Measurement: 128 Diastolic Measurement: 79 Screening for High Blood Pressure: < Pre-Hypertensive BP, F/U Documented > [G8950] Pre-Hypertensive Follow-up Interventions: Referral to alternative/primary care provider.
[2019-07-20] MEDS ORDERED: IPRATROPIUM/ALBUTEROL (0.5MG/3MG) NEB INH ONE (09:32)
[2019-07-20] MEDS ORDERED: METHYLPREDNISOLONE PF 125MG/VIAL IM ONE (09:32)
[2019-07-20 09:52] LABS: HEMATOCRIT 40.9 % (35.0-47.0); HEMOGLOBIN 13.3 gm/dl (11.6-16.0); MEAN CORPUSCULAR HEMOGLOBIN 30.2 pg (27-33); MEAN CORPUSCULAR HGB CONC 32.5 g/dl (32-36); MEAN PLATELET VOLUME 8.7 fl (7.4-10.4); PLATELET COUNT 336 K/uL (130-400); RED CELL DISTRIBUTION WIDTH 14.3 % (11.5-14.5); WHITE BLOOD COUNT W/O DIFF 11.5 K/uL (4.2-12.2)
[2019-07-20 10:04] LABS: INFLUENZA A NEGATIVE (NEGATIVE); INFLUENZA B NEGATIVE (NEGATIVE)
[2019-07-20] MEDS ORDERED: AZITHROMYCIN 500 MG TABLET PO ONE (10:10)
[2019-07-20] MEDS ORDERED: CEFTRIAXONE 1GM/50ML BAG 1 GM/50 ML BAG IVPB ONE (10:10)
[2019-07-20 11:22] LABS: BLOOD UREA NITROGEN 15 mg/dL (8-23); CREATININE 0.8 mg/dL (0.5-0.9); EST GLOMERULAR FILTRATION RATE > 60 mL/min
[2019-07-20 11:23] LABS: TOTAL PROTEIN 7.9 g/dL (6.6-8.7)
[2019-07-20 11:25] LABS: GLUCOSE,RANDOM 82 mg/dL (74-109)
[2019-07-20 11:28] LABS: ALBUMIN 3.9 g/dL (4.0-5.0); ALKALINE PHOSPHATASE 103 U/L (35-104); ALT/SGPT 23 U/L (<33); AST/SGOT 32 U/L (10.0-35.0)
--- NOTE | 2019-07-22 08:41 | RADIOLOGY REPORT ---
EXAM: CHEST, TWO VIEWS HISTORY: PRODUCTIVE COUGH FOR 4-5 DAYS. TECHNIQUE: Upright AP and lateral views of the chest were obtained. Comparison: Two view chest radiographic examination dated 10/18/18. FINDINGS: The heart is not enlarged and the pulmonary vasculature is nondilated. The thoracic aorta is tortuous and atherosclerotic. The lungs are hyperinflated consistent with COPD. Minor reticular opacity prominence in the lung bases identified likely relating to mild chronic interstitial change. No lung consolidation, costophrenic angle blunting or pneumothorax. There are degenerative changes of the visualized spine. Arterial calcification is noted within the upper arms. IMPRESSION: HYPERINFLATION OF THE LUNGS CONSISTENT WITH COPD. NO LUNG CONSOLIDATION, PLEURAL EFFUSION OR PNEUMOTHORAX. SUBTLE RETICULAR OPACITY PROMINENCE IN THE LATERAL LUNG BASES LIKELY RELATES TO CHRONIC INTERSTITIAL CHANGE. TORTUOUS ATHEROSCLEROTIC THORACIC AORTA. JOB NUMBER: [id number] [facility]
== END 2019-07-20 12:00 | disposition home or self-care (01) ==
LOC: ER 09:23
DX: J20.9 Acute bronchitis, unspecified (principal); I10 Essential (primary) hypertension; J44.9 Chronic obstructive pulmonary disease, unspecified
CPT/HCPCS: 71046; 80053; 85027; 87400; 94640; 96365; 96372; 99284; J0696; J2930

== ENCOUNTER 2019-07-30 05:42 | Observation (INO) | payer BC ==
[2019-07-30] MEDS ORDERED: IPRATROPIUM/ALBUTEROL (0.5MG/3MG) NEB INH ONE (05:54)
[2019-07-30] MEDS ORDERED: CEFTRIAXONE 1GM/50ML BAG 1 GM/50 ML BAG IVPB ONE (05:57)
[2019-07-30] MEDS ORDERED: METHYLPREDNISOLONE PF 125MG/VIAL IVP ONE (05:57)
--- NOTE | 2019-07-30 06:00 | Emergency Department Record ---
History of Present Illness - General Chief Complaint: Cough Stated Complaint: FLAVIA Time Seen by Provider: 07/30/19 05:47 Source: Patient Mode of Arrival: Ambulatory Limitations: No limitations - History of Present Illness Initial Comments: 79 yo female presents with persistent cough for about 1.5 weeks. She has a history of COPD and pneumonia in the past. She was seen in the [facility] ED on 07/20/19. She states her cough is not really any better. She feels tired and she has a poor appetite. She denies and fever. No nausea, vomiting or diarrhea. She lives alone. She is not a current smoker. No leg swelling or calf pain. No back, chest or abdominal pain. MD Complaint: Cough -: Week(s) Quality: Other Consistency: Constant Improves With: Nothing Worsens With: Activity, Other (coughing) Context: Other Associated Symptoms: Cough Treatments Prior to Arrival: Antibiotics - Related Data Previous Rx's Medication Instructions Recorded Guaifenesin [Mucinex] 600 mg PO BID #10 tab.er.12h 10/18/18 Azithromycin [Zithromax] 250 mg PO DAILY #4 tablet 07/20/19 Prednisone [Prednisone 20Mg] 20 mg PO DAILY #10 tab 07/20/19 Allergies Allergy/AdvReac Type Severity Reaction Status Date / Time codeine Allergy Unknown NAUSEA AND Verified 07/30/19 05:57 VOMITING Review of Systems Constitutional: Reports: Malaise, Weakness. Denies: Chills, Fever Eyes: Denies: Eye discharge ENT: Reports: Congestion Respiratory: Reports: Cough, Dyspnea. Denies: Hemoptysis, Stridor, Wheezes Cardiovascular: Denies: Chest pain, Edema, Palpitations, Syncope Endocrine: Reports: Fatigue Gastrointestinal: Reports: Nausea. Denies: Abdominal pain, Diarrhea, Vomiting Genitourinary: Denies: Dysuria, Urgency Musculoskeletal: Denies: Arthralgia, Back pain, Myalgia Skin: Denies: Bruising, Change in color, Rash Neurological: Denies: Headache Psychiatric: Denies: Anxiety Hematological/Lymphatic: Denies: Easy bleeding, Easy bruising Past Medical History - SOCIAL HISTORY Smoking Status: Never smoker Drug Use: None - RESPIRATORY Hx Respiratory Disorders: Yes Hx Asthma: Yes (bronchial) Hx Bronchitis: Yes Hx COPD: Yes - CARDIOVASCULAR Hx Cardio Disorders: Yes Hx Edema: Yes Hx Hypertension: Yes Hx Coronary Artery Disease: Yes Comment:: pt has carotid artery stenosis-no problems, mows lawn, chores w/o diff - NEURO Hx Neuro Disorders: No - GI Hx GI Disorders: Yes Hx Reflux: Yes Hx Hiatal Hernia: Yes Hx of Polyps: Yes - Hx Genitourinary Disorders: Yes Hx UTI: Yes - ENDOCRINE Hx Endocrine Disorders: Yes Hx Diabetes: No Hx Thyroid Disease: Yes - MUSCULOSKELETAL Hx Musculoskeletal Disorders: Yes Hx Arthritis: Yes - PSYCH Hx Psych Problems: Yes Hx Anxiety: Yes 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 negative: Conjunctival injection, Scleral icterus - ENT ENT exam: Normal exam, Mucous membranes moist, Normal orophraynx Ear exam: Normal external inspection Nasal Exam: Normal inspection Mouth exam: Normal external inspection - Neck Neck exam: Normal inspection. negative: Lymphadenopathy, Tenderness - Respiratory Respiratory exam: Decreased breath sounds, Rhonchi. negative: Normal lung sounds bilaterally, Accessory muscle use, Respiratory distress, Wheezes - Cardiovascular Cardiovascular Exam: Regular rate, Normal rhythm, Normal heart sounds Peripheral Pulses: 2+: Radial (R), Radial (L) - GI/Abdominal GI/Abdominal exam: Soft. negative: Tenderness - Rectal Rectal exam: Deferred - exam: Deferred - Extremities Extremities exam: Normal inspection. negative: Calf tenderness, Pedal edema, Tenderness - Back Back exam: Denies: CVA tenderness (R), CVA tenderness (L) - Neurological Neurological exam: Alert, Oriented X3 - Psychiatric Psychiatric exam: Normal affect, Normal mood - Skin Skin exam: Dry, Intact, Normal color, Warm Course - Reevaluation(s) Reevaluation #1: 07/30/19 06:24 The labs were reviewed The WBC count is 11 The CMP is normal The CXR was reviewed. 07/30/19 06:32 The patient lives alone, has poor appetite and generally very weak. I feel at this time she will be safer with admission. She does not have any immediate family or friend to support her at home currently. Medical Decision Making - Lab Data Result diagrams: 07/30/19 06:00 07/30/19 06:00 Disposition Disposition: Admit Clinical Impression: Bronchitis, COPD (chronic obstructive pulmonary disease), Weakness Disposition: Still a Patient at [facility] Decision to Admit: Admit from ER Decision to Admit Date: 07/30/19 Decision to Admit Time: 06:32 Condition: (2) Stable Forms: Patient Portal Access Time of Disposition: 06:32 Quality - Quality Measures Quality Measures: N/A - Blood Pressure Screening Does Patient Have Any of the Following: Active Dx of HTN Blood Pressure Classification: Hypertensive Reading Systolic Measurement: 134 Diastolic Measurement: 96 Screening for High Blood Pressure: Patient Exclusion, Hx of HTN [G9744]
[2019-07-30 06:06] LABS: ABSOLUTE NEUTROPHIL COUNT 8.96; BASO % 0.1 % (0-6); EOS % 2.9 % (0-6); HEMATOCRIT 40.5 % (35.0-47.0); HEMOGLOBIN 13.3 gm/dl (11.6-16.0); LYMPH % 10.1 % (16-45); MEAN CELL VOLUME 92.5 fl (81-97); MEAN CORPUSCULAR HEMOGLOBIN 30.4 pg (27-33); MEAN CORPUSCULAR HGB CONC 32.8 g/dl (32-36); MEAN PLATELET VOLUME 8.8 fl (7.4-10.4); MONO % 7.9 % (0-9); PLATELET COUNT 274 K/uL (130-400); RED BLOOD COUNT 4.38 M/uL (3.80-5.40); RED CELL DISTRIBUTION WIDTH 14.5 % (11.5-14.5); WHITE BLOOD COUNT W/O DIFF 11.3 K/uL (4.2-12.2)
[2019-07-30 06:14] LABS: BLOOD UREA NITROGEN 16 mg/dL (8-23); CREATININE 0.8 mg/dL (0.5-0.9); EST GLOMERULAR FILTRATION RATE > 60 mL/min
[2019-07-30 06:17] LABS: GLUCOSE,RANDOM 100 mg/dL (74-109)
[2019-07-30] MEDS ORDERED: CEFTRIAXONE SODIUM 1 GM in 0.9 % SODIUM CHLORIDE 100ML 100 ML IVPB SCH (07:55)
[2019-07-30] MEDS ORDERED: ALBUTEROL SULFATE (0.083%) 2.5 MG/3 ML NEB INH PRN (07:55)
[2019-07-30] MEDS ORDERED: 0.9 % SODIUM CHLORIDE 1000ML 1,000 ML IV ONE (07:55)
[2019-07-30] MEDS ORDERED: FLU VAC QS 2019-20 (INPT, 6MO+) 60MCG/0.5ML IM ONE (08:38)
[2019-07-30] MEDS: BREO (FLUTICASONE/VILANTEROL) 100MCG/25MCG INHALER INH SCH (09:16)
[2019-07-30] MEDS: IPRATROPIUM/ALBUTEROL (0.5MG/3MG) NEB INH SCH ×3 (09:16→18:27)
[2019-07-30] MEDS: AZITHROMYCIN 500 MG TABLET PO SCH (09:33)
[2019-07-30] MEDS: ASPIRIN 81 MG TABEC PO SCH (09:33)
[2019-07-30] MEDS: METOPROLOL TART 25 MG TABLET PO SCH ×2 (09:33→21:36)
[2019-07-30] MEDS: PANTOPRAZOLE SODIUM 40 MG TABLET PO SCH ×2 (09:34→16:30)
[2019-07-30] MEDS: GUAIFENESIN 600 MG TABCR PO SCH ×2 (09:34→21:33)
[2019-07-30] MEDS: DILTIAZEM HCL 30 MG TABLET PO SCH ×2 (09:34→21:34)
--- NOTE | 2019-07-30 09:41 | History & Physical ---
History of Present Illness - Date of Service Date of Service for History & Physical: 07/30/19 - History of Present Illness Admitting Diagnosis: COPD exacerbation History of Present Illness: 79 yo female presents to [facility] ER for continued cough x 10days. Pt was seen in the ER for the same 07/20/19, CXR neg for acute process, given prednisone and zpak. Pt returned with continued symptoms and fear of being alone while sick and short of breath. Family lives in outside towns but pt has life alert bracelet. 97.4F, HR 72, BP 134/96, RR 20, 94% RA WBC 11.3, Hgb 13.3, Hct 40.5, Plt 274 Na 138, K 3.8, BUN 16, Cr 0.8, GFR>60, glucose 100 Pt given NS IVF at 100.he, rocephin 1gm IVPB, duoneb, 125mg IVP duoneb CXR neg for acute process Admit for COPD exacerbation/bronchitis 07/30/19 Pt resting in bed, mild resp distress. Lung sounds are rhonchi, wheezes, and crackles in the bases. Pt on O2 NC for decreased resp distress and comfort, tolerating neb tx but still not able to make cough productive. +1 pitting edema noted BLE feet, pulses DP/PT +3. Pt reports she sits and sleeps in a recliner at home, with feet dangling below. POC continue abx, steroids, neb tx, supplemental O2, repeat labs in the AM. BNP was 605, no IVF at this time. PCP [facility] Travel Screening - Travel/Exposure Within Last 30 Days Have you traveled within the last 30 days?: No - Travel/Exposure Within Last Year Have you traveled outside the [place] in the last year?: No - Additonal Travel Details Have you been exposed to anyone with a communicable illness?: No - Travel Symptoms Symptom Screening: None Review of Systems Constitutional: Reports: Malaise, Weakness. Denies: Chills, Fever Eyes: Denies: Eye discharge ENT: Reports: Congestion Respiratory: Reports: Cough, Dyspnea. Denies: Hemoptysis, Stridor, Wheezes Cardiovascular: Denies: Chest pain, Edema, Palpitations, Syncope Endocrine: Reports: Fatigue Gastrointestinal: Reports: Nausea. Denies: Abdominal pain, Diarrhea, Vomiting Genitourinary: Denies: Dysuria, Urgency Musculoskeletal: Denies: Arthralgia, Back pain, Myalgia Skin: Denies: Bruising, Change in color, Rash Neurological: Denies: Headache Psychiatric: Denies: Anxiety Hematological/Lymphatic: Denies: Easy bleeding, Easy bruising Past Medical History - SOCIAL HISTORY Smoking Status: Never smoker Alcohol Use: None Drug Use: None - RESPIRATORY Hx Respiratory Disorders: Yes Hx Asthma: Yes (bronchial) Hx Bronchitis: Yes Hx COPD: Yes - CARDIOVASCULAR Hx Cardio Disorders: Yes Hx Edema: Yes Hx Hypertension: Yes Hx Coronary Artery Disease: Yes Comment:: pt has carotid artery stenosis-no problems, mows lawn, chores w/o diff - NEURO Hx Neuro Disorders: No - GI Hx GI Disorders: Yes Hx Reflux: Yes Hx Hiatal Hernia: Yes Hx of Polyps: Yes - Hx Genitourinary Disorders: Yes Hx UTI: Yes - ENDOCRINE Hx Endocrine Disorders: Yes Hx Diabetes: No Hx Thyroid Disease: Yes - MUSCULOSKELETAL Hx Musculoskeletal Disorders: Yes Hx Arthritis: Yes - PSYCH Hx Psych Problems: Yes Hx Anxiety: Yes Hx Depression: Yes 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 - HEMATOLOGY/ONCOLOGY Hx Hematology/Oncology Disorders: Yes Hx Cancer: Yes (Pancreatic) Hx Chemotherapy: No Hx Radiation Therapy: No Comment:: Pt states, "spot on pancreas, 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" Family Medical History Any Significant Family History?: Yes Hx Cancer: Father, Mother, Brother/Sister *Cancer Comment: Father-colon ca, Mom-ovarian, sister-breast H&P Meds/Allergies - Allergies Allergies: Allergies Allergy/AdvReac Type Severity Reaction Status Date / Time codeine Allergy Unknown NAUSEA AND Verified 07/30/19 05:57 VOMITING - Home Medications Previous Rx's Medication Instructions Recorded Guaifenesin [Mucinex] 600 mg PO BID #10 tab.er.12h 10/18/18 Azithromycin [Zithromax] 250 mg PO DAILY #4 tablet 07/20/19 Prednisone [Prednisone 20Mg] 20 mg PO DAILY #10 tab 07/20/19 - Active Medications Active Medications: Current Medications Albuterol Sulfate (Albuterol Sulfate) 2.5 mg INH RESP.Q4H PRN PRN Reason: DIFFICULTY IN BREATHING Albuterol/Ipratropium (Duoneb) 3 ml INH RESP.Q4H.WA [facility] Last Admin: 07/30/19 09:16 Dose: 3 ml Documented by: Aspirin (Ecotrin (Ec)) 81 mg PO DAILY [facility] Last Admin: 07/30/19 09:33 Dose: 81 mg Documented by: Azithromycin (Zithromax) 500 mg PO DAILY [facility] Last Admin: 07/30/19 09:33 Dose: 500 mg Documented by: Diltiazem HCl (Cardizem) 30 mg PO BID [facility] Last Admin: 07/30/19 09:34 Dose: 30 mg Documented by: Guaifenesin (Mucinex) 600 mg PO BID [facility] Last Admin: 07/30/19 09:34 Dose: 600 mg Documented by: Sodium Chloride () 1,000 mls @ 100 mls/hr IV .Q10H ONE Stop: 07/30/19 17:54 CEFTRIAXONE 1GM/50ML BAG (Ceftriaxone 1 Gm-D5w Bag) 1 gm in 50 mls @ 100 mls/hr IVPB Q24H [facility] Levothyroxine Sodium (Synthroid) 125 mcg PO DAILYTHY [facility] Methylprednisolone Sodium Succinate (Solu-Medrol) 60 mg IVP DAILY [facility] Metoprolol Tartrate (Lopressor) 25 mg PO BID [facility] Last Admin: 07/30/19 09:33 Dose: 25 mg Documented by: Mirtazapine (Remeron) 15 mg PO QHS [facility] Montelukast Sodium (Singulair) 10 mg PO QHS [facility] Pantoprazole Sodium (Protonix) 40 mg PO BIDAC [facility] Last Admin: 07/30/19 09:34 Dose: 40 mg Documented by: Simvastatin (Zocor) 20 mg PO QHS [facility] Physical Exam - Vital Signs Vital Signs: Vital Signs - Last 24 Hrs Temp Pulse Pulse Resp BP BP Pulse Ox 07/30/19 09:17 76 16 99 07/30/19 08:00 97.1 F L 65 12 154/84 90 L 07/30/19 06:56 72 28 H 144/91 97 07/30/19 05:56 69 18 93 L 07/30/19 05:47 97.4 F L 72 20 134/96 94 L - General General Appearance: Alert, Oriented x3, Cooperative, Mild distress Limitations: No limitations - Head Head exam: Atraumatic, Normal inspection - Eye Eye exam: Normal appearance, PERRL. negative: Conjunctival injection, Scleral icterus - ENT ENT exam: Normal exam, Mucous membranes moist, Normal orophraynx Ear exam: Normal external inspection Nasal Exam: Normal inspection Mouth exam: Normal external inspection - Neck Neck exam: Normal inspection. negative: Lymphadenopathy, Tenderness - Respiratory Respiratory exam: Decreased breath sounds, Respiratory distress (mild), Rhonchi, Wheezes. negative: Normal lung sounds bilaterally, Accessory muscle use - Cardiovascular Cardiovascular Exam: Regular rate, Normal rhythm, Normal heart sounds Peripheral Pulses: 2+: Radial (R), Radial (L), 3+: Dorsalis Pedis (R), Dorsalis Pedis (L) - GI/Abdominal GI/Abdominal exam: Soft. negative: Tenderness - Rectal Rectal exam: Deferred - exam: Deferred - Extremities Extremities exam: Normal inspection, Pedal edema (+1 pitting). negative: Calf tenderness, Tenderness - Back Back exam: Denies: CVA tenderness (R), CVA tenderness (L) - Neurological Neurological exam: Alert, Oriented X3 - Psychiatric Psychiatric exam: Normal affect, Normal mood - Skin Skin exam: Dry, Intact, Normal color, Warm Results - Labs Result Diagrams: 07/30/19 06:00 07/30/19 06:00 Labs Last 24 Hours: Laboratory Results - last 24 hr 07/30/19 07/30/19 06:00 06:00 WBC 11.3 RBC 4.38 Hgb 13.3 Hct 40.5 MCV 92.5 MCH 30.4 MCHC 32.8 RDW 14.5 Plt Count 274 MPV 8.8 Gran % 79.0 Lymphocytes % 10.1 L Monocytes % 7.9 Eosinophils % 2.9 Basophils % 0.1 Absolute Neutrophils 8.96 Sodium 138 Potassium 4.3 Chloride 98 Carbon Dioxide 28.0 Anion Gap 12.0 BUN 16 Creatinine 0.8 Estimated GFR > 60 Random Glucose 100 Calcium 9.1 - Imaging and Cardiology Chest x-ray Status: Pending VTE H&P Assessment - Risk for VTE Risk for VTE: Yes Risk Level: Moderate Risk Assessment Date: 07/30/19 Risk Assessment Time: 13:15 VTE Orders Placed or Will Be Placed: Yes Plan - Detailed Diagnosis and Plan (1) Hemophilus influenzae infection, unspecified site Current Visit: Yes Status: Acute Base Code: A49.2 - HEMOPHILUS INFLUENZAE INFECTION, UNSPECIFIED SITE Comment: 07/30/19 -pt had resp culture last visit that shows positive for H flu and staph -changed abx to BID -continue neb tx, steroids, and repeat labs AM (2) COPD (chronic obstructive pulmonary disease) Current Visit: Yes Status: Acute Base Code: J44.9 - CHRONIC OBSTRUCTIVE PULMONARY DISEASE, UNSPECIFIED Comment: 07/30/19 -COPD exacerbated by bacterial infection -continue alb neb tx, steroids, and repeat labs in the AM -supplement O2 for sat >92% (3) At risk for deep venous thrombosis Current Visit: No Status: Acute Base Code: Z91.89 - OTH PERSONAL RISK FACTORS, NOT ELSEWHERE CLASSIFIED Comment: 07/30/19 -high risk for DVT, adding lovenox 40mg SQ QD r/t age, illness and decreased mobility (4) Full code status Current Visit: No Status: Acute Base Code: Z78.9 - OTHER SPECIFIED HEALTH STATUS Comment: 07/30/19 full code status
[2019-07-30] MEDS ORDERED: NADOLOL 20 MG PO SCH (10:00)
--- NOTE | 2019-07-30 13:57 | Rehab Evaluation ---
Patient Information - Patient Information Diagnosis: COPD exacerbation Ordered Treatment: PT Evaluate and Treat Status: Initial Evaluation Surgery: No History: Detail (Pt states that she presented to ED on 07/20/19 with four days' duration of coughing, and subsequently presented again via EMS this morning with no improvement. She was admitted to [facility] for observation.) Past Medical/Surgical Hx: PAST MEDICAL/SURGICAL HISTORY Past Surgical History Whipple surgery-2011 rt toe hysterectomy left eye surgery for detached retina x2 bilat cataracts removed. rt breast biopsy bladder suspension nose surgery for deviated septum. PMH - Respiratory Hx Respiratory Disorders Yes Hx Asthma Yes: bronchial Hx Bronchitis Yes Hx Chronic Obstructive Yes Pulmonary Disease (COPD) PMH - Cardiovascular Hx Cardiovascular Disorders Yes Hx Edema Yes Hx Hypertension Yes Hx Coronary Artery Disease Yes Comment: pt has carotid artery stenosis-no problems, mows lawn, chores w/o diff PMH - Neuro Hx Neurological Disorders No PMH - GI Hx Gastrointestinal Disorders Yes Hx Gastroesophageal Reflux Yes Hx Hiatal Hernia Yes PMH - Hx Genitourinary Disorders Yes Hx Urinary Tract Infection Yes PMH - Endocrine Hx Endocrine Disorders Yes Hx Diabetes No Hx Thyroid Disease Yes PMH - Musculoskeletal Hx Musculoskeletal Disorders Yes Hx Arthritis Yes PMH - Psych Hx Psychiatric Problems Yes Hx Anxiety Yes Hx Depression Yes Comment: after Whipple procedure PMH - Hematology/Oncology Hx Hematology/Oncology Yes Disorders Hx Cancer Yes: Pancreatic Hx Chemotherapy No Hx Radiation Therapy No Comment: Pt states, "spot on pancreas, 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" Premorbid Status: Detail (Pt lives alone in a single story home, with three steps going into the kitchen with a single handrail. She ambulated independently without an assistive device within her home, and used a single tip cane outside of the home. 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 She has a regular tub with a tub seat, hand held shower, and no grab bars. She states she has had no falls in the past six months. She does not use supplemental oxygen at home.) Social History: Detail (Pt has a grandson, Mikey, who lives nearby and provides some assistance (grocery shopping, writes checks for bills, gets mail, mows lawn, takes garbage out). She has a Life Alert wristband. She states she does her own housekeeping, laundry, and cooking.) Precautions: [place], Fall - Time With Patient Total Time Spent With Patient (Min): 30 Treatment Procedures: Detail (PT Evaluation) Subjective Information - Subjective Information Per Patient (Pt reports mostly fatigue and frustrated by persistent cough. She denies pain.) Objective Data - Pain Pain Present: No - Mental Status Patient Orientation: Oriented x3 - Visual Perception Appears within normal limits for therapeutic activities - ROM Within normal limits - Strength/Tone Not within normal limits (Pt exhibits 3-/5 strength in B hip extension, B hip abduction, and B knee flexion; 4-/5 strength in B hip flexion and B knee flexion, and 4/5 B knee extension. 4+/5 B ankle dorsiflexion.) - Coordination Appears within normal limits for therapeutic activities - Bed Mobility Independent - Transfers Independent - Balance Balance Sitting: Good Balance Standing: Fair (Pt fatigued rapidly with standing, declined to do further tasks to assess balance.) - Sensation Intact - Gait Detail (Pt is ambulating with nrsg, requiring hand held assist/contact guard assist without assistive device.) Therapy Assessment - Therapy Assessment Detail (Pt exhibits lower extremity weakness and difficulty walking primarily due to endurance/fatigue. She may benefit from home physical therapy once discharged to ensure safety at home.) Problem List - Problem List Physical Therapy Problem List: Detail (1. Lower extremity weakness 2. Impaired activity tolerance 3. Unable to fully assess balance) Goals - Goals Physical Therapy Goals: 1. Complete balance assessment. 2. Assess safety on stairs. 3. Pt will safely and independently ambulate over household distances w/o assistive device. Prognosis - Prognosis Good Plan - Plan Physical Therapy Plan: Pt will be seen 1-2x/day M- until goals met/discharge for gait and balance training, instruction in LE strengthening exercises, safety education with mobility.
[2019-07-30] MEDS: ENOXAPARIN 40 MG/0.4 ML SYR SQ SCH (14:44)
[2019-07-30] MEDS: LEVOTHYROXINE SODIUM 125 MCG TABLET PO SCH (14:45)
[2019-07-30] MEDS: CEFTRIAXONE 1GM/50ML BAG 1 GM/50 ML BAG IVPB SCH (17:38)
[2019-07-30] MEDS: MONTELUKAST SODIUM 10MG TABLET PO SCH (21:36)
[2019-07-30] MEDS: SIMVASTATIN 20 MG TABLET PO SCH (21:36)
[2019-07-30] MEDS: MIRTAZAPINE 15 MG TABLET PO SCH (21:37)
[2019-07-31] MEDS ORDERED: CEFTRIAXONE 1GM/50ML BAG 1 GM/50 ML BAG IVPB SCH (06:00)
[2019-07-31] MEDS: CEFTRIAXONE 1GM/50ML BAG 1 GM/50 ML BAG IVPB SCH (06:14)
[2019-07-31] MEDS: LEVOTHYROXINE SODIUM 125 MCG TABLET PO SCH (06:14)
[2019-07-31] MEDS: PANTOPRAZOLE SODIUM 40 MG TABLET PO SCH ×2 (06:14→16:08)
[2019-07-31] MEDS: IPRATROPIUM/ALBUTEROL (0.5MG/3MG) NEB INH SCH ×6 (06:19→23:06)
[2019-07-31] MEDS ORDERED: ONDANSETRON 4 MG ODT TABLET SL ONE (06:53)
--- NOTE | 2019-07-31 07:22 | RADIOLOGY REPORT ---
EXAM: CHEST, TWO VIEWS HISTORY: COUGH. TECHNIQUE: AP and lateral radiographs of the chest were obtained. Comparison: 07/20/19. FINDINGS: The heart and pulmonary vessels are unremarkable. There are scattered nodular densities, similar to the prior study. On the CT of 09/06/17, these appear to be chronic and at least partially due to bronchiectasis and mucus filled bronchi. Some of these densities may be calcified, consistent with calcified granulomas. There is no pleural fluid. This study is otherwise unremarkable. IMPRESSION: 1. SCATTERED NODULAR DENSITIES, LIKELY DUE TO BRONCHIECTASIS AND MUCUS PLUGGING. THERE MAY BE CALCIFIED GRANULOMAS. 2. NO ACUTE AIR SPACE PROCESS. JOB NUMBER: [id number] [facility]
[2019-07-31] MEDS: DILTIAZEM HCL 30 MG TABLET PO SCH ×2 (09:44→21:09)
[2019-07-31] MEDS: GUAIFENESIN 600 MG TABCR PO SCH ×2 (09:44→21:13)
[2019-07-31] MEDS: ENOXAPARIN 40 MG/0.4 ML SYR SQ SCH (09:45)
[2019-07-31] MEDS: METOPROLOL TART 25 MG TABLET PO SCH ×2 (09:45→21:09)
[2019-07-31] MEDS: AZITHROMYCIN 500 MG TABLET PO SCH (09:45)
[2019-07-31] MEDS: ASPIRIN 81 MG TABEC PO SCH (09:45)
[2019-07-31] MEDS ORDERED: NYSTATIN 15 GM TUBE TOP ONE (09:54)
[2019-07-31] MEDS ORDERED: METHYLPREDNISOLONE PF 125MG/VIAL IVP SCH (10:00)
[2019-07-31] MEDS: BREO (FLUTICASONE/VILANTEROL) 100MCG/25MCG INHALER INH SCH (10:13)
--- NOTE | 2019-07-31 10:19 | Physical Therapy Tx Note ---
Physical Therapy Tx Note - Treatment Note Total Time Spent With Patient: 20 Physical Therapy Tx Note: Detail (Patient stated that she was feeling a little better today. Patient's balance was assessed using the Tinetti and patient scored a 24/28 putting her on the borderline of low and moderate risk of falling. Patient was able to initiate gait without hesitancy and ambulated independently without an assistive device. Turning into the hallway the patient lost her balance but was able to correct herself and maintain upright. Patient ambulated 100 feet over smooth surfaces. She was able to ascend and descend 3 stairs independently with the use of 1 railing. In the bedside chair patient was educated on weight shifting techniques for pressure relief and how many times she should be doing these techniques. She was also educated on getting up to walk around her home for a few minutes every 2 hours or while she is watching TV. Patient completed exercises of ankle pumps x10, knee extension x5, hip flexion x5, and hip abduction x5. Patient complained of fatigue with completing exercises so repetitions were reduced from 10 to 5. Patient was given these exercises to complete at home. Patient was left in bed with the call light and bedside table within reach.) Physical Therapy Problem List: Detail (1. Lower extremity weakness 2. Impaired activity tolerance 3. Unable to fully assess balance) Physical Therapy Goals: 1. Complete balance assessment. GOAL MET. 2. Assess safety on stairs. GOAL MET. 3. Pt will safely and independently ambulate over household distances w/o assistive device. GOAL MET Physical Therapy Plan: Pt will be seen 1-2x/day M-F until goals met/discharge for gait and balance training, instruction in LE strengthening exercises, safety education with mobility. Inpatient therapy goals have been met at this time.
--- NOTE | 2019-07-31 11:37 | Rehab Evaluation ---
Patient Information - Patient Information Diagnosis: COPD exacerbation Ordered Treatment: OT Evaluate and Treat Status: Initial Evaluation Surgery: No History: Detail (Pt states that she presented to ED on 07/20/19 with four days' duration of coughing, and subsequently presented again via EMS this morning with no improvement. She was admitted to [facility] for observation.) Past Medical/Surgical Hx: PAST MEDICAL/SURGICAL HISTORY Past Surgical History Whipple surgery-2011 rt toe hysterectomy left eye surgery for detached retina x2 bilat cataracts removed. rt breast biopsy bladder suspension nose surgery for deviated septum. PMH - Respiratory Hx Respiratory Disorders Yes Hx Asthma Yes: bronchial Hx Bronchitis Yes Hx Chronic Obstructive Yes Pulmonary Disease (COPD) PMH - Cardiovascular Hx Cardiovascular Disorders Yes Hx Edema Yes Hx Hypertension Yes Hx Coronary Artery Disease Yes Comment: pt has carotid artery stenosis-no problems, mows lawn, chores w/o diff PMH - Neuro Hx Neurological Disorders No PMH - GI Hx Gastrointestinal Disorders Yes Hx Gastroesophageal Reflux Yes Hx Hiatal Hernia Yes PMH - Hx Genitourinary Disorders Yes Hx Urinary Tract Infection Yes PMH - Endocrine Hx Endocrine Disorders Yes Hx Diabetes No Hx Thyroid Disease Yes PMH - Musculoskeletal Hx Musculoskeletal Disorders Yes Hx Arthritis Yes PMH - Psych Hx Psychiatric Problems Yes Hx Anxiety Yes Hx Depression Yes Comment: after Whipple procedure PMH - Hematology/Oncology Hx Hematology/Oncology Yes Disorders Hx Cancer Yes: Pancreatic Hx Chemotherapy No Hx Radiation Therapy No Comment: Pt states, "spot on pancreas, 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" Premorbid Status: Detail (Pt lives alone in a two story home, with three steps going into the kitchen with a single handrail. She stays on the main level. She ambulated independently without an assistive device within her home, and used a single tip cane outside of the home. 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 She has a regular tub with a tub seat, hand held shower, and no grab bars and an elevated toilet without grab bars. She states she has had no falls in the past six months. She does not use supplemental oxygen at home. She is Ind with all meal prep, laundry and home mgmt tasks.) Social History: Detail (Pt has a grandson, Mikey, who lives nearby and provides some assistance (grocery shopping, writes checks for bills, gets mail, mows lawn, takes garbage out). She has a Life Alert wristband.) Precautions: [place], Fall - Time With Patient Total Time Spent With Patient (Min): 25 Treatment Procedures: Detail (OT eval low complexity) Subjective Information - Subjective Information Per Patient Objective Data - Pain Pain Present: No - Mental Status Patient Orientation: Oriented x3 - Visual Perception Appears within normal limits for therapeutic activities - ROM Within normal limits (Wilbert UE AROM WNL) - Strength/Tone Within normal limits (Wilbert UE strength 4+/5) - Coordination Appears within normal limits for therapeutic activities - ADL's/IADL's Detail (Pt reports she is not concerned about ADL/IADL tasks after discharge.) Therapy Assessment - Therapy Assessment Detail (Pt feels she will not have difficulty with ADLs/IADLs after discharge.) Problem List - Problem List Physical Therapy Problem List: Detail (1. Lower extremity weakness 2. Impaired activity tolerance 3. Unable to fully assess balance) Occupational Therapy Problem List: Detail (No current IP OT problems identified.) Goals - Goals Physical Therapy Goals: 1. Complete balance assessment. GOAL MET. 2. Assess safety on stairs. GOAL MET. 3. Pt will safely and independently ambulate over household distances w/o assistive device. GOAL MET Occupational Therapy Goals: No current IP OT goals identified. Prognosis - Prognosis Good Plan - Plan Physical Therapy Plan: Pt will be seen 1-2x/day M- until goals met/discharge for gait and balance training, instruction in LE strengthening exercises, safety education with mobility. Inpatient therapy goals have been met at this time. Occupational Therapy Plan: No further IP OT recommended at this time. Thank you for this referral.
--- NOTE | 2019-07-31 11:40 | Physician Progress Note ---
Subjective - Date Date of Physician Progress Note: 07/31/19 - Subjective Subjective Comment: Pt reports improved symptoms, cough is not as freq but is more productive with flutter valve. Pt moving about the bed with little difficulty. Reporting tolerance of PO intake, decreased resp distress and decreased work of breathing. Objective - Vital Signs Vital Signs: Vital Signs - Last 24 Hrs Temp Pulse Pulse Pulse Resp BP BP 07/31/19 10:13 60 16 07/31/19 07:24 97.6 F 60 18 168/89 07/31/19 07:11 65 16 07/30/19 21:00 20 07/30/19 20:00 99.1 F 78 20 135/75 07/30/19 18:27 83 16 07/30/19 16:05 84 18 148/75 07/30/19 15:28 97.9 F 123/73 07/30/19 15:17 77 16 07/30/19 12:00 97.9 F 70 18 123/73 Pulse Ox 07/31/19 10:13 99 07/31/19 07:24 99 07/31/19 07:11 99 07/30/19 21:00 07/30/19 20:00 99 07/30/19 18:27 99 07/30/19 16:05 97 07/30/19 15:28 07/30/19 15:17 99 07/30/19 12:00 100 - General General Appearance: Alert, Oriented x3, Cooperative, No acute distress Limitations: No limitations - Head Head exam: Atraumatic, Normal inspection - Eye Eye exam: Normal appearance, PERRL. negative: Conjunctival injection, Scleral icterus - ENT ENT exam: Normal exam, Mucous membranes moist, Normal orophraynx Ear exam: Normal external inspection Nasal Exam: Normal inspection Mouth exam: Normal external inspection - Neck Neck exam: Normal inspection. negative: Lymphadenopathy, Tenderness - Respiratory Respiratory exam: Decreased breath sounds, Wheezes. negative: Normal lung sounds bilaterally, Accessory muscle use, Respiratory distress, Rhonchi - Cardiovascular Cardiovascular Exam: Regular rate, Normal rhythm, Normal heart sounds Peripheral Pulses: 2+: Radial (R), Radial (L), 3+: Dorsalis Pedis (R), Dorsalis Pedis (L) - GI/Abdominal GI/Abdominal exam: Soft. negative: Tenderness - Rectal Rectal exam: Deferred - exam: Deferred - Extremities Extremities exam: Normal inspection, Pedal edema (+1 pitting). negative: Calf tenderness, Tenderness - Back Back exam: Denies: CVA tenderness (R), CVA tenderness (L) - Neurological Neurological exam: Alert, Oriented X3 - Psychiatric Psychiatric exam: Normal affect, Normal mood - Skin Skin exam: Dry, Intact, Normal color, Warm, Other (skin break down, lumbar spinal process and sacral) Assessment and Plan - Assessment and Plan (1) Hemophilus influenzae infection, unspecified site Current Visit: Yes Status: Acute Base Code: A49.2 - HEMOPHILUS INFLUENZAE INFECTION, UNSPECIFIED SITE Comment: 07/30/19 -pt had resp culture last visit that shows positive for H flu and staph -changed abx to BID -continue neb tx, steroids, and repeat labs AM 07/31/19 -increased [place]pe[place] to BID dosing, RT gave pt flutter valve and cough has been more productive -continue rocephine BID dosing this AM, transition to cefdinir this HS and potential D/C in the am (2) COPD (chronic obstructive pulmonary disease) Current Visit: Yes Status: Acute Base Code: J44.9 - CHRONIC OBSTRUCTIVE PULMONARY DISEASE, UNSPECIFIED Comment: 07/30/19 -COPD exacerbated by bacterial infection -continue alb neb tx, steroids, and repeat labs in the AM -supplement O2 for sat >92% 07/31/19 -pt not longer needing supplementaly O2 -continue steroids but change to PO, continue neb tx (3) At risk for deep venous thrombosis Current Visit: No Status: Acute Base Code: Z91.89 - OTH PERSONAL RISK FACTORS, NOT ELSEWHERE CLASSIFIED Comment: 07/31/19 -high risk for DVT, adding lovenox 40mg SQ QD r/t age, illness and decreased mobility (4) Full code status Current Visit: No Status: Acute Base Code: Z78.9 - OTHER SPECIFIED HEALTH STATUS Comment: 07/31/19 full code status Results - Labs Result Diagrams: 07/30/19 06:00 07/30/19 06:00 DVT/PE Assessment - Risk for VTE Risk for VTE: No Risk Level: Moderate Risk Assessment Date: 07/30/19 Risk Assessment Time: 13:15 VTE Orders Placed or Will Be Placed: Yes - Active Medicaitons Current Medications: Current Medications Albuterol Sulfate (Albuterol Sulfate) 2.5 mg INH RESP.Q4H PRN PRN Reason: DIFFICULTY IN BREATHING Albuterol/Ipratropium (Duoneb) 3 ml INH RESP.Q4H.WA [facility] Last Admin: 07/31/19 10:13 Dose: 3 ml Documented by: Aspirin (Ecotrin (Ec)) 81 mg PO DAILY [facility] Last Admin: 07/31/19 09:45 Dose: 81 mg Documented by: Azithromycin (Zithromax) 500 mg PO DAILY [facility] Last Admin: 07/31/19 09:45 Dose: 500 mg Documented by: Diltiazem HCl (Cardizem) 30 mg PO BID [facility] Last Admin: 07/31/19 09:44 Dose: 30 mg Documented by: Enoxaparin Sodium (Lovenox) 40 mg SQ DAILY [facility] Last Admin: 07/31/19 09:45 Dose: 40 mg Documented by: Guaifenesin (Mucinex) 600 mg PO BID [facility] Last Admin: 07/31/19 09:44 Dose: 600 mg Documented by: CEFTRIAXONE 1GM/50ML BAG (Ceftriaxone 1 Gm-D5w Bag) 1 gm in 50 mls @ 100 mls/hr IVPB Q12H [facility] Last Infusion: 07/31/19 06:47 Dose: Infused Documented by: Levothyroxine Sodium (Synthroid) 125 mcg PO DAILYTHY [facility] Last Admin: 07/31/19 06:14 Dose: 125 mcg Documented by: Methylprednisolone Sodium Succinate (Solu-Medrol) 60 mg IVP DAILY [facility] Last Admin: 07/31/19 09:45 Dose: 60 mg Documented by: Metoprolol Tartrate (Lopressor) 25 mg PO BID [facility] Last Admin: 07/31/19 09:45 Dose: 25 mg Documented by: Mirtazapine (Remeron) 15 mg PO QHS [facility] Last Admin: 07/30/19 21:37 Dose: 15 mg Documented by: Montelukast Sodium (Singulair) 10 mg PO QHS [facility] Last Admin: 07/30/19 21:36 Dose: 10 mg Documented by: Pantoprazole Sodium (Protonix) 40 mg PO BIDAC [facility] Last Admin: 07/31/19 06:14 Dose: 40 mg Documented by: Simvastatin (Zocor) 20 mg PO QHS [facility] Last Admin: 07/30/19 21:36 Dose: 20 mg Documented by: AMI Plan - Labs Result Diagrams: 07/30/19 06:00 07/30/19 06:00
[2019-07-31] MEDS ORDERED: CALCIUM CARBONATE 500 MG TAB.CHEW PO PRN (20:49)
[2019-07-31] MEDS: CEFDINIR 300 MG CAPSULE PO SCH (21:08)
[2019-07-31] MEDS: SIMVASTATIN 20 MG TABLET PO SCH (21:09)
[2019-07-31] MEDS: MIRTAZAPINE 15 MG TABLET PO SCH (21:10)
[2019-07-31] MEDS: MONTELUKAST SODIUM 10MG TABLET PO SCH (21:11)
[2019-07-31] MEDS ORDERED: LORAZEPAM 0.5 MG TABLET PO ONE (22:49)
[2019-07-31] MEDS: CLONIDINE HCL 0.1 MG TABLET PO ONE ×2 (22:57→23:41)
[2019-08-01] MEDS: LEVOTHYROXINE SODIUM 125 MCG TABLET PO SCH (06:47)
[2019-08-01] MEDS: PANTOPRAZOLE SODIUM 40 MG TABLET PO SCH (06:47)
[2019-08-01] MEDS: IPRATROPIUM/ALBUTEROL (0.5MG/3MG) NEB INH SCH ×2 (07:03→09:25)
[2019-08-01] MEDS: DILTIAZEM HCL 30 MG TABLET PO SCH ×2 (07:33→09:14)
[2019-08-01] MEDS: METOPROLOL TART 25 MG TABLET PO SCH ×2 (07:33→09:17)
[2019-08-01] MEDS ORDERED: PREDNISONE 20 MG TAB PO SCH (08:00)
[2019-08-01] MEDS: ASPIRIN 81 MG TABEC PO SCH (09:15)
[2019-08-01] MEDS: CEFDINIR 300 MG CAPSULE PO SCH (09:15)
[2019-08-01] MEDS: ENOXAPARIN 40 MG/0.4 ML SYR SQ SCH (09:16)
[2019-08-01] MEDS: GUAIFENESIN 600 MG TABCR PO SCH (09:16)
[2019-08-01] MEDS: BREO (FLUTICASONE/VILANTEROL) 100MCG/25MCG INHALER INH SCH (09:25)
[2019-08-01] MEDS ORDERED: METOPROLOL TART 25 MG TABLET PO ONE (11:51)
--- NOTE | 2019-08-01 11:58 | Discharge Summary ---
Providers Discharge Summary Date: 08/01/19 Date of admission: 07/30/19 07:22 Expected Date of Discharge: 08/01/19 Attending physician: ANTOINETTE DAVIS Primary care physician: JERSON WAHL D.O. Physical Exam - Vital Signs Vital Signs: Vital Signs - Last 24 Hrs Temp Pulse Pulse Pulse Pulse Resp BP 08/01/19 09:25 61 16 08/01/19 09:00 66 16 08/01/19 08:52 98.8 F 66 18 154/85 08/01/19 06:50 98.1 F 72 16 08/01/19 00:12 98.6 F 72 14 07/31/19 23:43 07/31/19 23:38 07/31/19 23:06 71 16 07/31/19 22:15 185/106 07/31/19 21:01 98.1 F 83 16 189/125 07/31/19 21:00 16 07/31/19 18:20 67 16 07/31/19 16:20 98.2 F 61 16 07/31/19 14:03 60 16 07/31/19 11:24 98.1 F 65 18 BP Pulse Ox 08/01/19 09:25 99 08/01/19 09:00 08/01/19 08:52 96 08/01/19 06:50 185/100 98 08/01/19 00:12 173/99 96 07/31/19 23:43 177/102 07/31/19 23:38 175/104 07/31/19 23:06 96 07/31/19 22:15 07/31/19 21:01 96 07/31/19 21:00 07/31/19 18:20 99 07/31/19 16:20 162/93 95 07/31/19 14:03 99 07/31/19 11:24 165/84 100 - General General Appearance: Alert, Oriented x3, Cooperative, No acute distress Limitations: No limitations - Head Head exam: Atraumatic, Normal inspection - Eye Eye exam: Normal appearance, PERRL. negative: Conjunctival injection, Scleral icterus - ENT ENT exam: Normal exam, Mucous membranes moist, Normal orophraynx Ear exam: Normal external inspection Nasal Exam: Normal inspection Mouth exam: Normal external inspection - Neck Neck exam: Normal inspection. negative: Lymphadenopathy, Tenderness - Respiratory Respiratory exam: Decreased breath sounds. negative: Normal lung sounds bilaterally, Accessory muscle use, Respiratory distress, Rhonchi, Wheezes - Cardiovascular Cardiovascular Exam: Regular rate, Normal rhythm, Normal heart sounds Peripheral Pulses: 2+: Radial (R), Radial (L), 3+: Dorsalis Pedis (R), Dorsalis Pedis (L) - GI/Abdominal GI/Abdominal exam: Soft. negative: Tenderness - Rectal Rectal exam: Deferred - exam: Deferred - Extremities Extremities exam: Normal inspection, Pedal edema (trace pitting). negative: Calf tenderness, Tenderness - Back Back exam: Denies: CVA tenderness (R), CVA tenderness (L) - Neurological Neurological exam: Alert, Oriented X3 - Psychiatric Psychiatric exam: Normal affect, Normal mood - Skin Skin exam: Dry, Intact, Normal color, Warm, Other (skin break down, lumbar spinal process and sacral) Hospitalization - Hospitalization Admission Diagnosis: COPD exacerbation - Problem List/Discharge Diagnosis (1) Hemophilus influenzae infection, unspecified site Current Visit: Yes Status: Acute Base Code: A49.2 - HEMOPHILUS INFLUENZAE INFECTION, UNSPECIFIED SITE Comment: 07/30/19 -pt had resp culture last visit that shows positive for H flu and staph -changed abx to BID -continue neb tx, steroids, and repeat labs AM 07/31/19 -increased [place] to BID dosing, RT gave pt flutter valve and cough has been more productive -continue rocephine BID dosing this AM, transition to cefdinir this HS and potential D/C in the am 08/01/19 -pt continues to improve with PO treatment -d/c with cefdinir and inhalers (2) COPD (chronic obstructive pulmonary disease) Current Visit: Yes Status: Acute Base Code: J44.9 - CHRONIC OBSTRUCTIVE PULMONARY DISEASE, UNSPECIFIED Comment: 07/30/19 -COPD exacerbated by bacterial infection -continue alb neb tx, steroids, and repeat labs in the AM -supplement O2 for sat >92% 07/31/19 -pt not longer needing supplementaly O2 -continue steroids but change to PO, continue neb tx 08/01/19 -pt has improved lung sounds, no wheezes or rhonchi noted -d/c with home meds and continue cefdinir PO for 10 more days -pt to use alb neb tx QID and PRN q4 hrs for difficulty breathing (3) Hypertension Current Visit: Yes Status: Acute Base Code: I10 - ESSENTIAL (PRIMARY) HYPERTENSION Comment: 08/01/19 -pt was switched from nadolol 20mg BID to metoprolol 25mg BID r/t formulary and risk of nadolol and bronch spasms -the previous evening pt became very anxious, BP elevated and pt was reporting concern, given clonidine 0.1mg PO x2 and ativan 0.5mg PO and pt was able to have lower BP and rest the remainder of the evening -will d/c with 25mg metoprolol BID to decrease potential for bronchospasms and pt to f/u with PCP (4) At risk for deep venous thrombosis Current Visit: No Status: Acute Base Code: Z91.89 - OTH PERSONAL RISK FAC TORS, NOT ELSEWHERE CLASSIFIED Comment: 08/01/19 -high risk for DVT, adding lovenox 40mg SQ QD r/t age, illness and decreased mobility (5) Full code status Current Visit: No Status: Acute Base Code: Z78.9 - OTHER SPECIFIED HEALTH STATUS Comment: 08/01/19 full code status - Hospitalization Course Hospital Course: 79 yo female presents to [facility] ER for continued cough x 10days. Pt was seen in the ER for the same 07/20/19, CXR neg for acute process, given prednisone and zpak. Pt returned with continued symptoms and fear of being alone while sick and short of breath. Family lives in outside towns but pt has life alert bracelet. 97.4F, HR 72, BP 134/96, RR 20, 94% RA WBC 11.3, Hgb 13.3, Hct 40.5, Plt 274 Na 138, K 3.8, BUN 16, Cr 0.8, GFR>60, glucose 100 Pt given NS IVF at 100.he, rocephin 1gm IVPB, duoneb, 125mg IVP duoneb CXR neg for acute process Admit for COPD exacerbation/bronchitis 07/30/19 Pt resting in bed, mild resp distress. Lung sounds are rhonchi, wheezes, and crackles in the bases. Pt on O2 NC for decreased resp distress and comfort, tolerating neb tx but still not able to make cough productive. +1 pitting edema noted BLE feet, pulses DP/PT +3. Pt reports she sits and sleeps in a recliner at home, with feet dangling below. POC continue abx, steroids, neb tx, supplemental O2, repeat labs in the AM. BNP was 605, no IVF at this time. PCP Ama Procedures: Imaging and X-Rays 07/30/19 05:54 CHEST 2 VIEWS [RAD] Stat Cardiology Procedures 07/30/19 07:55 Sales Promoter .Continuous 07/31/19 22:45 EKG NOW Abnormal Labs: Abnormal Lab Results 07/30/19 07/30/19 Range/Units 06:00 06:00 Lymphocytes % 10.1 L (16-45) % NT-Pro-B Natriuret Pep 609.40 H (<450) pg/mL Condition at Discharge: (2) Stable Discharge Medications - Discharge Medications Prescriptions: Albuterol Sulfate 0.083% [Neb] [Albuterol Sulfate] 2.5 mg INH RESP.Q4H PRN 17 Days #100 nebulization solution PRN Reason: Difficulty In Breathing Cefdinir 300 mg PO BID 8 Days #16 capsule Metoprolol Tartrate [Lopressor] 25 mg PO BID 14 Days #28 tab Home Medications: Ambulatory Orders Montelukast Sodium [Singulair] 10 mg PO QHS 04/15/15 [Last Taken 11/28/17 22:00] Tiotropium [place] [Spiriva] 1 puff INH DAILY 04/15/15 [Last Taken Unknown] Aspirin [Aspirin EC] 81 mg PO DAILY 11/30/17 [Last Taken Unknown] Diltiazem HCl [Cardizem] 30 mg PO BID 11/30/17 [Last Taken 11/28/17 22:00 30 MG] Levothyroxine Sodium [Synthroid] 125 mcg PO DAILY 11/30/17 [Last Taken Unknown] Loratadine [Claritin] 10 mg PO DAILY 11/30/17 [Last Taken Unknown] Lovastatin 40 mg PO QHS 11/30/17 [Last Taken Unknown] Mirtazapine [Remeron] 15 mg PO QHS 11/30/17 [Last Taken 11/28/17 22:00] Pantoprazole Sodium 40 mg PO BIDAC 11/30/17 [Last Taken Unknown] Fluticasone/Vilanterol [Breo Ellipta 100-25 Mcg INH] 1 puff INH DAILY 10/18/18 [Last Taken Unknown] Guaifenesin [Mucinex] 600 mg PO BID #10 tab.er.12h 10/18/18 [Last Taken Unknown] Ranitidine HCl [Zantac] 150 mg PO DAILY 10/18/18 [Last Taken Unknown] Albuterol Sulfate 0.083% [Neb] [Albuterol Sulfate] 2.5 mg INH RESP.Q4H PRN 17 Days #100 nebulization solution 08/01/19 [Last Taken Unknown] Calcium Carbonate [Tums] 500 mg PO Q4H PRN tab.chew 08/01/19 [Last Taken Unknown] Cefdinir 300 mg PO BID 8 Days #16 capsule 08/01/19 [Last Taken Unknown] Metoprolol Tartrate [Lopressor] 25 mg PO BID 14 Days #28 tab 08/01/19 [Last Taken Unknown] Simvastatin [Zocor] 20 mg PO QHS tablet 08/01/19 [Last Taken Unknown] Discharge Plan - Discharge Instructions Activity at Discharge: As Per Physical Therapy Diet at Discharge: Advance to Usual Diet Additional Instructions: Please us the neb treatments 4 times a day and as needed every 4 hours. Alb medication has been sent to [facility] in [place]. Continue your antibiotics until they are finished, your steroids were completed during this admission. Pls call Dr Wahl to schedule a follow up within the week. Please return to ER for chest pain, difficulty breathing that is not resolved with breathing treatments, weakness, or worsening symptoms like fever, chills, or weakness. Quality Measures - Quality Measures Quality Measures: Advance Directives, Documentation of Current Medications in Medical Record, Elder Maltreatment Screen and Follow-Up Plan, Screening for High Blood Pressure and F/U Documented - Current Medications Quality Measure: Measure #130: Documentation of Current Medications Documentation of Current Medications: <Current Medications Documented/Reviewed> [G8427] - Blood Pressure Screening Quality Measure: Screening for High Blood Pressure and Follow-Up Documented Does Patient Have Any of the Following: Active Dx of HTN Blood Pressure Classification: Pre-Hypertensive BP Reading Systolic Measurement: 123 Diastolic Measurement: 73 Screening for High Blood Pressure: Patient Exclusion, Hx of HTN [G9744] - Advance Directives Quality Measure: Measure #47: Care Plan Advance Directives Established: Yes Advance Directives Information Provided To Patient: No Advance Directives on File: No Living Will: No Power of Motor Polarizer: Yes Power of Motor Polarizer Name: BILLY BLACKWELL ([place]) Advance Care Planning: <Care Plan/Decision Maker Not Decided; Discussed & Documented> [1124F] - Elder Abuse Suspicion Index Screening: Elder Abuse Suspicion Index Screening Rely on people for bathing, dressing, shopping, banking, etc: No Prevented from getting food, clothes, medication, etc: No Made to feel shamed or threatened by someone: No Forced to sign papers or use money against will: No Feel afraid, touched in ways not wanted or hurt physically: No Poor eye contact, withdrawn, malnourished, cuts or bruises: No Screening Result: Negative result EASI Reference Information: Audra ANDERSON, Karen C, Margi D, Brennen Patel.Development and validation of a tool to assist physicians identification of elder abuse: The Elder Abuse Suspicion Index (EASI ). Journal of Elder Abuse and Neglect, 2008; 20 (3): 276-300. - Elder Maltreatment Screen Quality Measures: Elder Maltreatment Screen and Follow-Up Plan Elder Maltreatment Screen: <Negative, No Follow-Up Plan Required> [G8716]
== END 2019-08-01 13:15 | disposition home health service (06) ==
LOC: ER 05:42 → INTOOBSV 07:22 → MEDSURG 07:22
PROVIDERS: ADMIT Internal Medicine; ATTEND Internal Medicine
DX: A49.2 Hemophilus influenzae infection, unspecified site (principal); J44.1 Chronic obstructive pulmonary disease with (acute) exacerbation; J20.9 Acute bronchitis, unspecified; J44.0 Chronic obstructive pulmonary disease with (acute) lower respiratory infection; R53.1 Weakness; R05 Cough; L98.421 Non-pressure chronic ulcer of back limited to breakdown of skin; I10 Essential (primary) hypertension; I25.10 Atherosclerotic heart disease of native coronary artery without angina pectoris; R60.1 Generalized edema; I65.29 Occlusion and stenosis of unspecified carotid artery; K21.9 Gastro-esophageal reflux disease without esophagitis; E03.9 Hypothyroidism, unspecified; M19.90 Unspecified osteoarthritis, unspecified site; Z85.07 Personal history of malignant neoplasm of pancreas; Z23 Encounter for immunization
CPT/HCPCS: 99285 ×2; 96374; 96365; 85025; 80048; 83880; 71046; 94640 ×7; 94667; 93005; 94760; 90686; G0378 ×3; J7512; J3490 ×4; J0696 ×2; 99217; 99220; 99226; J1650; J2930

== ENCOUNTER 2019-10-30 00:25 | Emergency (ER) | payer BC ==
[2019-10-30] MEDS ORDERED: ONDANSETRON HCL IV 4 MG/2 ML VIAL IVP PRN (00:33)
--- NOTE | 2019-10-30 00:34 | Emergency Department Record ---
History of Present Illness - General Chief complaint: Nausea, Vomiting, Diarrhea Stated complaint: NAUSEA/VOMITING Time Seen by Provider: 10/30/19 00:27 Source: Patient, EMS Mode of Arrival: EMS Limitations: No limitations - History of Present Illness Initial comments: 79 yo female presents to ED for evaluation of loose stools and nausea symptoms for the past several days. Patient denies fevers, chills, cough, or abdominal pain symptoms. 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 MD complaint: Diarrhea, Nausea Onset/Timin -: Days(s) Description of Diarrhea: Mucous Location: Diffuse Severity: Moderate Quality: Cramping Consistency: Constant Improves with: None Worsens with: None Associated Symptoms: Denies other symptoms - Related Data Previous Rx's Medication Instructions Recorded Guaifenesin [Mucinex] 600 mg PO BID #10 tab.er.12h 10/18/18 Albuterol Sulfate 0.083% [Neb] 2.5 mg INH RESP.Q4H PRN 17 Days 08/01/19 [Albuterol Sulfate] #100 nebulization solution Calcium Carbonate [Tums] 500 mg PO Q4H PRN tab.chew 08/01/19 Cefdinir 300 mg PO BID 8 Days #16 capsule 08/01/19 Metoprolol Tartrate [Lopressor] 25 mg PO BID 14 Days #28 tab 08/01/19 Simvastatin [Zocor] 20 mg PO QHS tablet 08/01/19 Cephalexin [Keflex] 500 mg PO TID #20 cap 10/30/19 Ondansetron [Zofran Odt] 4 mg PO Q8H PRN #15 tab.rapdis 10/30/19 Allergies Allergy/AdvReac Type Severity Reaction Status Date / Time codeine Allergy Unknown NAUSEA AND Verified 07/30/19 05:57 VOMITING Review of Systems Constitutional: Denies: Chills, Fever, Malaise, Night sweats Eyes: Denies: Eye discharge, Eye pain ENT: Denies: Congestion, Ear pain, Epistaxis Respiratory: Denies: Cough, Dyspnea Cardiovascular: Denies: Chest pain, Dyspnea on exertion Endocrine: Denies: Fatigue, Heat or cold intolerance Gastrointestinal: Reports: Abdominal pain, Diarrhea, Nausea. Denies: Constipation, Vomiting Genitourinary: Denies: Incontinence, Retention Musculoskeletal: Denies: Arthralgia, Back pain Skin: Denies: Bruising, Change in color Neurological: Denies: Abnormal gait, Confusion, Headache, Seizure Psychiatric: Denies: Anxiety Hematological/Lymphatic: Denies: Anemia, Blood Clots Past Medical History - SOCIAL HISTORY Smoking Status: Never smoker - RESPIRATORY Hx Respiratory Disorders: Yes Hx Asthma: Yes (bronchial) Hx Bronchitis: Yes Hx COPD: Yes - CARDIOVASCULAR Hx Cardio Disorders: Yes Hx Edema: Yes Hx Hypertension: Yes Hx Coronary Artery Disease: Yes Comment:: pt has carotid artery stenosis-no problems, mows lawn, chores w/o diff - NEURO Hx Neuro Disorders: No - GI Hx GI Disorders: Yes Hx Reflux: Yes Hx Hiatal Hernia: Yes Hx of Polyps: Yes - Hx Genitourinary Disorders: Yes Hx UTI: Yes - ENDOCRINE Hx Endocrine Disorders: Yes Hx Diabetes: No Hx Thyroid Disease: Yes - MUSCULOSKELETAL Hx Musculoskeletal Disorders: Yes Hx Arthritis: Yes - PSYCH Hx Psych Problems: Yes Hx Anxiety: Yes Hx Depression: Yes 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 - HEMATOLOGY/ONCOLOGY Hx Hematology/Oncology Disorders: Yes Hx Cancer: Yes (Pancreatic) Hx Chemotherapy: No Hx Radiation Therapy: No Comment:: Pt states, "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 negative: Conjunctival injection, Periorbital swelling, Periorbital tenderness, Scleral icterus - ENT ENT exam: Mucous membranes dry Ear exam: negative: Auricular hematoma, Auricular trauma Nasal Exam: negative: Active bleeding, Discharge, Dried blood, Foreign body Mouth exam: negative: Drooling, Laceration, Muffled voice, Tongue elevation - Neck Neck exam: Normal inspection. negative: Meningismus, Tenderness - Respiratory Respiratory exam: Normal lung sounds bilaterally. negative: Rales, Respiratory distress, Rhonchi, Stridor - Cardiovascular Cardiovascular Exam: Regular rate, Normal rhythm, Normal heart sounds - GI/Abdominal GI/Abdominal exam: Soft, Tenderness (Diffuse TTP, no rebound, no guarding present). negative: Rebound, Rigid - Rectal Rectal exam: Deferred - exam: Deferred - Extremities Extremities exam: Normal inspection, Other (Small area of cellulitis to the RLE anteriorly). negative: Pedal edema, Tenderness - Back Back exam: Denies: CVA tenderness (R), CVA tenderness (L) - Neurological Neurological exam: Alert, Normal gait, Oriented X3 - Psychiatric Psychiatric exam: Normal affect, Normal mood - Skin Skin exam: Normal color. negative: Abrasion Type of lesion: negative: abrasion Course - Reevaluation(s) Reevaluation #1: 10/30/19 01:48 CT Abdomen and Pelvis: No acute process Small ventral wall hernia with small segment of bowel, no incarceration/strangulation Renal cysts Aortic tortuosity Diverticulosis without diverticulitis Reevaluation #2: 10/30/19 02:28 Laboratory studies were reviewed and appear grossly unremarkable for an acute process except for: UA: 16-20 WBCs 3-6 Epithelial cells Moderate Bacteria Patient was updated on all results, has been unable to provide stool sample. Patient is tolerating fluids well at this time and reports that her nausea symptoms are greatly improved. Will initiate Keflex for patient's UTI symptoms. Medical Decision Making - Lab Data Result diagrams: 10/30/19 00:35 10/30/19 00:35 Disposition Disposition: Discharge Clinical Impression: Nausea UTI (urinary tract infection) Qualifiers: Urinary tract infection type: acute cystitis Hematuria presence: without hematuria Qualified Code(s): N30.00 - Acute cystitis without hematuria Disposition: Home, Self-Care Condition: (2) Stable Instructions: Urinary Tract Infection in Women (ED) Additional Instructions: Return to ED if your symptoms worsen or if you have any concerns. Keflex, Zofran as directed. Follow-up with your family doctor in 3-5 days as directed. Prescriptions: Cephalexin [Keflex] 500 mg PO TID #20 cap Ondansetron [Zofran Odt] 4 mg PO Q8H PRN #15 tab.rapdis PRN Reason: Nausea/Vomiting Forms: Patient Portal Access Time of Disposition: 02:31 Quality - Quality Measures Quality Measures: N/A - Blood Pressure Screening Does Patient Have Any of the Following: No Blood Pressure Classification: Pre-Hypertensive BP Reading Systolic Measurement: 133 Diastolic Measurement: 82 Screening for High Blood Pressure: < Pre-Hypertensive BP, F/U Documented > [G8950] Pre-Hypertensive Follow-up Interventions: Referral to alternative/primary care provider.
[2019-10-30 00:45] LABS: ABSOLUTE NEUTROPHIL COUNT 4.84; EOS % 4.3 % (0-6); GRAN % 69.2 % (47-80); HEMATOCRIT 38.4 % (35.0-47.0); HEMOGLOBIN 12.4 gm/dl (11.6-16.0); LYMPH % 14.2 % (16-45); MEAN CELL VOLUME 93.9 fl (81-97); MEAN CORPUSCULAR HEMOGLOBIN 30.3 pg (27-33); MEAN CORPUSCULAR HGB CONC 32.3 g/dl (32-36); MEAN PLATELET VOLUME 8.4 fl (7.4-10.4); MONO % 11.3 % (0-9); PLATELET COUNT 288 K/uL (130-400); RED BLOOD COUNT 4.09 M/uL (3.80-5.40); RED CELL DISTRIBUTION WIDTH 14.2 % (11.5-14.5)
[2019-10-30] MEDS ORDERED: 0.9 % SODIUM CHLORIDE 1000ML 500 ML IV SCH (00:45)
--- NOTE | 2019-10-30 01:45 | CT SCAN REPORT ---
EXAMINATION: CT Abdomen and Pelvis without IV Contrast EXAM DATE: 10/30/2019 1:24 AM TECHNIQUE: Standard protocol CT imaging of the abdomen and pelvis was performed without intravenous c ontrast. INDICATION: Abdominal pain, diarrhea COMPARISON: 09/06/2017 ENCOUNTER: Not applicable CT ABDOMEN AND PELVIS FINDINGS: Lung Bases: Included extent of the lung bases are clear. Hepatobiliary: The liver has a normal size with a smooth surface. The gallbladder is absent. There is no biliary dilatation. Pneumobilia is again noted. Pancreas: Prior pancreatic head resection Spleen: The spleen is not enlarged. Adrenals: The adrenal glands are normal. Kidneys, Ureters, & Bladder: Multiple stable bilateral renal cysts, kidneys otherwise normal. No meredith l calculi are present. Both ureters have a normal course and caliber and the urinary bladder a normal morphology and uniform wall thickness. No ureteral or bladder calculi are identified. Gastrointestinal: Previous Whipple procedure. The appendix is not identified. Diverticulosis of the c olon without diverticulitis. Reproductive Organs: Unremarkable Lymphatic System: There is no adenopathy within the abdomen or pelvis. Vasculature: Marked tortuosity of the abdominal aorta similar to that seen previously. No aneurysm. Peritoneum: No free fluid, free air, or inflammation Abdominal wall & Musculoskeletal: There is a small anterior pelvic wall hernia containing a short seg ment of small bowel. There is no evidence of strangulation or obstruction. Assessment of the solid organs, soft tissues, and vascular structures is overall limited on noncontra st imaging, IMPRESSION: 1. No acute process 2. Small ventral hernia in the anterior pelvic wall containing a short segment of bowel. No evidence of strangulation or obstruction. 3. Marked tortuosity of the abdominal aorta 4. Multiple stable bilateral renal cysts 5. Diverticulosis of the colon without diverticulitis Dictated by: Moisés Chahal DO on 10/30/2019 1:31 AM. .
[2019-10-30 02:04] LABS: URINE APPEARANCE CLOUDY; URINE BILIRUBIN MODERATE (NEGATIVE); URINE BLOOD TRACE-I (NEGATIVE); URINE COLOR YELLOW; URINE GLUCOSE (UA) NEGATIVE (NEGATIVE); URINE KETONE 15 mg/dL (NEGATIVE); URINE LEUKOCYTE ESTERASE MODERATE (NEGATIVE); URINE NITRITE NEGATIVE (NEGATIVE); URINE PROTEIN TRACE (NEGATIVE); URINE UROBILINOGEN 0.2 E.U./dL (0.20 - 1.00)
[2019-10-30 02:16] LABS: BLOOD UREA NITROGEN 24 mg/dL (8-23); CREATININE 0.9 mg/dL (0.5-0.9); EST GLOMERULAR FILTRATION RATE > 60 mL/min
[2019-10-30 02:17] LABS: LIPASE 6 U/L (13-60); TOTAL PROTEIN 7.3 g/dL (6.6-8.7)
[2019-10-30 02:19] LABS: GLUCOSE,RANDOM 76 mg/dL (74-109)
[2019-10-30 02:19] LABS: URINE EPITHELIAL CELLS 0 - 2 (FEW); URINE RBC 0 - 2 (NONE SEEN); URINE WBC 16 - 20 (0-2/hpf)
[2019-10-30 02:20] LABS: URINE BACTERIA MODERATE; URINE HYALINE CAST 0 - 5 /lpf; URINE MUCUS MODERATE
[2019-10-30 02:21] LABS: ALBUMIN 3.7 g/dL (4.0-5.0); ALT/SGPT 11 U/L (<33); AST/SGOT 20 U/L (10.0-35.0)
[2019-10-30 02:22] LABS: ALKALINE PHOSPHATASE 79 U/L (35-104)
[2019-10-30] MEDS ORDERED: CEPHALEXIN 500 MG CAPSULE PO STA (02:33)
== END 2019-10-30 03:20 | disposition home or self-care (01) ==
LOC: ER 00:25
DX: N30.00 Acute cystitis without hematuria (principal); R11.0 Nausea; R19.7 Diarrhea, unspecified; I10 Essential (primary) hypertension; J44.9 Chronic obstructive pulmonary disease, unspecified
CPT/HCPCS: 74176; 80053; 81001; 83690; 85025; 99284